=== PATIENT | male | born 1980 | race Caucasian/White ===

== ENCOUNTER 2016-07-28 19:50 | Emergency (ER) | payer MEDICARE, MEDICAID ==
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
--- NOTE | 2016-07-28 21:45 | RAD ---
INDICATION: Cough COMPARISON: March 04, 2004 TECHNIQUE: PA and lateral dual-energy views were obtained. FINDINGS: Bones/Soft Tissues: There are no acute bony findings. Cardiomediastinal: The cardiomediastinal silhouette is normal. Lungs: There are no infiltrates. Pleura: There are no pleural effusions. Other: None IMPRESSION: NO ACTIVE DISEASE.
[2016-07-28 22:15] VITALS: BP 130/79
== END 2016-07-28 22:20 | disposition home or self-care (01) ==
LOC: UCEAST 19:50
DX: J06.9 Acute upper respiratory infection, unspecified (principal); Z87.891 Personal history of nicotine dependence
CPT/HCPCS: 71020; 99211; G0463

== ENCOUNTER 2016-10-01 09:10 | Emergency (ER) | payer MEDICARE, MEDICAID ==
[2016-10-01 11:18] VITALS: BP 157/91
--- NOTE | 2016-10-01 11:56 | UC ---
Throat Pain/Nasal Sedrick HPI - HPI Summary HPI Summary: NAM, ear and throat pain, feve and chills, fatigue for the past 3 days. - History of Current Complaint Chief Complaint: UCRespiratory Stated Complaint: THROAT PAIN Time Seen by Provider: 10/01/16 11:33 Hx Obtained From: Patient Onset/Duration: Sudden Onset, Lasting Days Severity: Severe Associated Signs & Symptoms: Positive: Dysphagia, Sinus Discomfort, Nasal Discharge, Fever - Allergies/Home Medications Allergies/Adverse Reactions: Allergies Allergy/AdvReac Type Severity Reaction Status Date / Time Yanivpberry Allergy Severe Rash Verified 10/01/16 11:19 Home Medications: Home Medications NK [No Home Medications Reported] 10/01/16 [History Confirmed 10/01/16] PMH/Surg Hx/FS Hx/Imm Hx Previously Healthy: Yes Endocrine History Of: Denies: Diabetes, Thyroid Disease Cardiovascular History Of: Denies: Cardiac Disorders, Hypertension Respiratory History Of: Denies: COPD, Asthma GI/ History Of: Denies: Ulcer Psychological History Of: Denies: Anxiety, Depression - Surgical History Surgical History: None - Family History Known Family History: Positive: None, Other - Denies FHx of GI problems Family History: no knowledge of family history pt was adopted - Social History Alcohol Use: None Substance Use Type: None Smoking Status (MU): Former Smoker Amount Used/How Often: quit 10/2014 Review of Systems Constitutional: Fever, Chills, Fatigue Skin: Negative Eyes: Negative ENT: Sore Throat, Ear Ache, Nasal Discharge Respiratory: Negative Cardiovascular: Negative Gastrointestinal: Negative Genitourinary: Negative Motor: Negative Neurovascular: Negative Musculoskeletal: Negative Neurological: Headache Psychological: Negative All Other Systems Reviewed And Are Negative: Yes Physical Exam Triage Information Reviewed: Yes Appearance: Ill-Appearing, Pain Distress, Obese Vital Signs: Initial Vital Signs Temp 99.6 F 10/01/16 11:12 Pulse 93 10/01/16 11:12 Resp 17 10/01/16 11:12 BP 157/91 10/01/16 11:12 Pulse Ox 97 10/01/16 11:12 Vital Signs Reviewed: Yes Eye Exam: Normal Eyes: Positive: Conjunctiva Inflamed ENT: Positive: Pharyngeal erythema, Nasal congestion, Nasal drainage, TM bulging , TM dull, TM red - left side Dental Exam: Normal Neck exam: Normal Neck: Positive: Supple, Nontender, No Lymphadenopathy Respiratory Exam: Normal Respiratory: Positive: Chest non-tender, Lungs clear, Normal breath sounds Cardiovascular Exam: Normal Cardiovascular: Positive: RRR, No Murmur, Pulses Normal Abdominal Exam: Normal Abdomen Description: Positive: Nontender, No Organomegaly, Soft Bowel Sounds: Positive: Present Musculoskeletal Exam: Normal Neurological Exam: Normal Psychological Exam: Normal Skin Exam: Normal Throat Pain/Nasal Course/Dx - Course Course Of Treatment: hx obtained, exam performed, meds reviewed, treated for sinsuitis and otitis media with augmentin - Differential Dx/Diagnosis Differential Diagnosis/HQI/PQRI: Influenza, Laryngitis, Otitis Media, Pharyngitis, Sinusitis, URI Provider Diagnoses: sinusitits. otitis media, left Discharge - Discharge Plan Condition: Stable Disposition: HOME Patient Education Materials: Otitis Media (ED) Forms: *Work Release Additional Instructions: 1. take the medication as prescribed 2. Increase your fluid intake 3. advil or tylenol for pain and fever 4. get plenty of rest. 5. follow up with any worsening symptoms
== END 2016-10-01 12:00 | disposition home or self-care (01) ==
LOC: UCEAST 09:10
DX: J32.9 Chronic sinusitis, unspecified (principal); H66.92 Otitis media, unspecified, left ear; Z87.891 Personal history of nicotine dependence
CPT/HCPCS: 99212; G0463

== ENCOUNTER 2016-10-31 15:41 | Emergency (ER) | payer MEDICARE, MEDICAID ==
[2016-10-31 17:06] VITALS: BP 121/94
[2016-10-31] MEDS ORDERED: Ondansetron ODT TAB* 4 MG PO ONE (19:15)
--- NOTE | 2016-10-31 19:16 | UC ---
Abdominal Pain Male HPI - HPI Summary HPI Summary: 36 male presents with complaints of diffuse middle abdominal pain that began today while at work. Patient states pain at this time was sharp and about an 8/ 10. Patient also experienced some nausea, dry heaving and loose stool at this time that since resolved. Patient's pain also had decreased and was about a 2/ 10 and is currently 5/10. Denies current nausea. Patient states he only came here because his boss advised that he did and said he should get a work note. Patient states he has had this type of pain in the past when he gets stomach bugs and this appears to be similar. He denies chest pain, blood in stool, difficulty breathing, urinary or genitalia symptoms, blood in urine, fever/ chills and radiation of pain. Denies known PMHx. Has not taken any medication. LBM was today. Ate [employer], where he works, for breakfast and burritos last night for dinner. - History of Current Complaint Chief Complaint: UCAbdominalPain Stated Complaint: ABD PAIN Time Seen by Provider: 10/31/16 17:49 Hx Obtained From: Patient Onset/Duration: Sudden Onset, Still Present, Resolved Timing: Constant Severity Initially: Moderate Severity Currently: Mild Pain Intensity: 5 Pain Scale Used: 0-10 Numeric Location: Diffuse - mid abdomen, not localized on right or left Radiates: No Character: Aching, Dull, Sharp - at times Aggravating Factor(s):: Nothing Alleviating Factor(s): Spontaneous Resolution Associated Signs And Symptoms: Positive: Nausea, Diarrhea. Negative: Diaphoresis, Fever, Cough, Chest Pain, Constipation, Blood in Stool, Urinary Symptoms, Decreased Appetite, Vomiting, Penile Discharge Similar Episode/Dx As:: past viral stomach bugs - Allergies/Home Medications Allergies/Adverse Reactions: Allergies Allergy/AdvReac Type Severity Reaction Status Date / Time Raspberry Allergy Severe Rash Verified 10/31/16 17:01 Home Medications: Home Medications NK [No Home Medications Reported] 10/31/16 [History Confirmed 10/31/16] PMH/Surg Hx/FS Hx/Imm Hx - Additional Past Medical History Additional PMH: No known PMHX. denies DM, HTN, asthma - Surgical History Surgical History: None - Family History Known Family History: Positive: None, Other - Denies FHx of GI problems Family History: no knowledge of family history pt was adopted - Social History Alcohol Use: None Alcohol Amount: recovering alcoholic Substance Use Type: None Smoking Status (MU): Former Smoker Amount Used/How Often: quit 10/2014 - Immunization History Vaccination Up to Date: Yes Review of Systems Constitutional: Negative Skin: Negative Respiratory: Negative Cardiovascular: Negative Gastrointestinal: Abdominal Pain, Diarrhea Genitourinary: Negative Motor: Negative Musculoskeletal: Negative Neurological: Negative All Other Systems Reviewed And Are Negative: Yes Physical Exam Triage Information Reviewed: Yes Appearance: Well-Appearing, No Pain Distress, Well-Nourished, Obese Vital Signs: Initial Vital Signs Temp 98.4 F 10/31/16 17:01 Pulse 82 10/31/16 17:01 Resp 16 10/31/16 17:01 BP 121/94 10/31/16 17: Pulse Ox 99 10/31/16 17:01 Vital Signs Reviewed: Yes Eyes: Positive: Conjunctiva Clear ENT: Positive: Normal ENT inspection, Hearing grossly normal, Pharynx normal Dental: Negative: Cervical Lymphadenopathy Neck: Positive: Supple, Nontender, No Lymphadenopathy Respiratory: Positive: Chest non-tender, Lungs clear, Normal breath sounds, No respiratory distress, No accessory muscle use. Negative: Respiratory distress, Crackles, Rhonchi, Stridor, Wheezing Cardiovascular: Positive: RRR, No Murmur, Pulses Normal, Brisk Capillary Refill Abdomen Description: Positive: No Organomegaly, Soft, Bruit, Other: - negative rovsings, psoas and rebound. negative obvious deformity. minimal tenderness diffusely in mid abdomen/umbilical area.. Negative: CVA Tenderness (R), CVA Tenderness (L), Distended, Guarding, McBurney's Point Tenderness, Peritoneal Signs Bowel Sounds: Positive: Present Musculoskeletal: Positive: Strength Intact, ROM Intact Neurological: Positive: Alert Skin Exam: Normal Abd Pain Male Course/Dx - Course Course Of Treatment: patient appears to be suffering from a gastroenteritis however due to complaint of symptoms that were worse prior to arrival and PE findings was encouraged to have a further evaluation and work up at ER. Patient decided at this time he was not going to go however if it worsened he would. Denied any urinary symptoms and therefore no UA was ordered. Also due to PE findings.Given zofran to help with nausea while in office. encouraged to try pepto bismal and ibuprofen at home. aware of worsening signs and symptoms. follow up pcp. - Differential Dx/Clinical Impression Differential Diagnosis/HQI/PQRI: Appendicitis, Constipation, Diverticulitis, Prostatitis, Other Provider Diagnoses: abdominal pain, gastroenteritis Discharge - Discharge Plan Condition: Stable Disposition: AGAINST MEDICAL ADVICE Patient Education Materials: Gastroenteritis (ED) Forms: *Work Release Referrals: No Primary Care Phys,NOPCP [Primary Care Provider] - [facility] [Outside] Additional Instructions: If any of your symptoms worsen please go straight to the ER immediately, as they can be life threatening. Try taking some pepto-bismol when you get home and ibuprofen to see if symptoms improve. Follow up with PCP.
== END 2016-10-31 19:40 | disposition left against medical advice (07) ==
LOC: UCEAST 15:41
DX: R10.9 Unspecified abdominal pain (principal); K52.9 Noninfective gastroenteritis and colitis, unspecified; Z87.891 Personal history of nicotine dependence
CPT/HCPCS: 99212; A9270-GY; G0463

== ENCOUNTER 2016-11-13 17:21 | Emergency (ER) | payer MEDICARE, MEDICAID ==
[2016-11-13 18:24] VITALS: BP 140/69
--- NOTE | 2016-11-13 18:45 | UC ---
Ear Complaint HPI - HPI Summary HPI Summary: 36 yo male developed the onset of right ear pain and tinnitis after a spell ov vomiting this AM Now only mild pain and no tinnitis no further n/v - History of Current Complaint Chief Complaint: UCEar Stated Complaint: EAR ACHE Time Seen by Provider: 11/13/16 18:39 Hx Obtained From: Patient Onset/Duration: Sudden Onset, Lasting Hours Severity Initially: Moderate Severity Currently: Mild Pain Intensity: 2 Pain Scale Used: 0-10 Numeric - Allergies/Home Medications Allergies/Adverse Reactions: Allergies Allergy/AdvReac Type Severity Reaction Status Date / Time Raspberry Allergy Severe Rash Verified 11/13/16 18:24 PMH/Surg Hx/FS Hx/Imm Hx Previously Healthy: Yes - Surgical History Surgical History: None - Family History Known Family History: Positive: None, Other - Denies FHx of GI problems Family History: no knowledge of family history pt was adopted - Social History Alcohol Use: None Alcohol Amount: recovering alcoholic Substance Use Type: None Smoking Status (MU): Former Smoker Amount Used/How Often: quit 10/2014 - Immunization History Vaccination Up to Date: Yes Review of Systems Constitutional: Negative Skin: Negative Eyes: Negative ENT: Ear Ache Respiratory: Negative Cardiovascular: Negative Gastrointestinal: Negative, Vomiting - x1 Genitourinary: Negative Motor: Negative Neurovascular: Negative Musculoskeletal: Negative Neurological: Negative Psychological: Negative All Other Systems Reviewed And Are Negative: Yes Physical Exam Triage Information Reviewed: Yes Appearance: Well-Appearing, No Pain Distress, Well-Nourished Vital Signs: Initial Vital Signs Temp 97.5 F 11/13/16 18:21 Pulse 79 11/13/16 18:21 Resp 18 11/13/16 18:21 BP 140/69 11/13/16 18:21 Pulse Ox 98 11/13/16 18:21 Eyes: Positive: Conjunctiva Clear ENT: Positive: TMs normal - Left, TM bulging - right Neck: Positive: Supple, Nontender Respiratory: Positive: Lungs clear, Normal breath sounds, No respiratory distress, No accessory muscle use Cardiovascular: Positive: RRR, No Murmur Musculoskeletal: Positive: ROM Intact, No Edema Neurological: Positive: Alert Psychological Exam: Normal Skin Exam: Normal Ear Complaint Course/Dx - Differential Dx/Diagnosis Provider Diagnoses: right serous otitis media Discharge - Discharge Plan Condition: Stable Disposition: HOME Patient Education Materials: Serous Otitis Media (ED) Forms: *Work Release Referrals: [facility] [Outside]
== END 2016-11-13 18:50 | disposition home or self-care (01) ==
LOC: UCEAST 17:21
DX: H65.91 Unspecified nonsuppurative otitis media, right ear (principal); Z87.891 Personal history of nicotine dependence
CPT/HCPCS: 99211; G0463

== ENCOUNTER 2016-11-22 17:23 | Emergency (ER) | payer MEDICARE, MEDICAID ==
[2016-11-22 18:05] VITALS: BP 131/79
--- NOTE | 2016-11-22 20:34 | UC ---
Ivan Wang Aidan, scribed for Claudette Cullen MD on 11/22/16 at 1929 . General HPI - HPI Summary HPI Summary: 36 y/o male presents to the Urgent Care with a complaint of an acute, moderate episode of nausea and vomiting that occurred this morning. He also reports having an upper left jaw infection with intermittent episodes of pain. Symptoms began 3 days ago. During the onset of his pain, he begins to feel nauseous. Yesterday, he had an episode of diffuse body aches. Pt is allergic to raspberries. - History of Current Complaint Chief Complaint: UCGI Stated Complaint: VOMITING Time Seen by Provider: 11/22/16 19:08 Hx Obtained From: Patient Onset/Duration: Sudden Onset, Lasting Days, Still Present Timing: Intermittent Episodes Lasting: Onset Severity: Moderate Current Severity: Moderate Pain Intensity: 8 Pain Location at: upper left jaw Pain Radiates to: pain does not radiate Character: sharp Aggravating: none reported Alleviating: none reported Associated Signs & Symptoms: Positive: Nausea, Vomiting, Other - upper left jaw infection with intermittent episodes of pain - Allergy/Home Medications Allergies/Adverse Reactions: Allergies Allergy/AdvReac Type Severity Reaction Status Date / Time Raspberry Allergy Severe Rash Verified 11/13/16 18:24 PMH/Surg Hx/FS Hx/Imm Hx Previously Healthy: No - former substance abuse Psychological History: Schizophrenia - Surgical History Surgical History: None - Family History Family History: no knowledge of family history pt was adopted - Social History Occupation: Employed Full-time Lives: With Family Alcohol Use: None Alcohol Amount: recovering alcoholic Substance Use Type: None Substance Use Comment - Amount & Last Used: Previous heroin, cocaine, and crack abuse. Pt is 5 years sober from alcohol Smoking Status (MU): Former Smoker Amount Used/How Often: quit 10/2014 - Immunization History Vaccination Up to Date: Yes Review of Systems Constitutional: Negative Skin: Other - facial swelling left jaw and left cheek Eyes: Negative ENT: Dental Pain, Other - left jaw pain Respiratory: Negative Cardiovascular: Negative Gastrointestinal: Vomiting, Nausea Genitourinary: Negative Motor: Negative Neurovascular: Negative Musculoskeletal: Negative Neurological: Negative Psychological: Negative All Other Systems Reviewed And Are Negative: Yes Physical Exam Triage Information Reviewed: Yes Appearance: Well-Appearing, Well-Nourished, Pain Distress Vital Signs: Initial Vital Signs Temp 99.1 F 11/22/16 18:01 Pulse 76 11/22/16 18:01 Resp 18 11/22/16 18:01 BP 131/79 11/22/16 18:01 Pulse Ox 98 11/22/16 18:01 Vital Signs Reviewed: Yes Eyes: Positive: Conjunctiva Clear ENT: Positive: Normal ENT inspection. Negative: Muffled/hoarse voice Dental: Positive: Gross Decay/Caries @ - total decay and carries, Dental Fracture @ - tooth #12 is fractured Neck: Positive: Supple, Nontender, No Lymphadenopathy Respiratory: Positive: Lungs clear, Normal breath sounds, No respiratory distress, No accessory muscle use Cardiovascular: Positive: RRR, No Murmur, Pulses Normal, Brisk Capillary Refill Musculoskeletal: Positive: Strength Intact, ROM Intact Neurological Exam: Normal Psychological Exam: Normal Skin Exam: Normal Course/Dx - Course Course Of Treatment: 36 y/o male presents with episodes of nausea and vomiting likely secondary to his jaw and dental infection with pain. On examination tooth #12 was fractured and pt has diffuse caries and fractures. ISTOP shows narcotics in 2016. Pt's blood pressure was 131/79, which is slightly hypertensive. Recommended follow up with primary care within 4 weeks for blood pressure monitoring and evaluation. Pt will be treated with amoxicillin, zofran and narcotic for severe pain. - Differential Dx - Multi-Symptom Differential Diagnoses: Metabolic Abnormality, Other - dental abscess Provider Diagnoses: Dental abscess; vomiting; Elevated blood pressure without diagnosis of HTN, Discharge - Discharge Plan Condition: Stable Disposition: HOME Prescriptions: Amoxicillin CAP* [Amoxicillin 500 MG CAP*] 500 mg PO TID #30 cap HYDROcodone/ACETAMIN 5-325 MG* [[place] 5-325 TAB*] 1 tab PO Q4H PRN #18 tab MDD 6 PRN Reason: Pain Ondansetron ODT TAB* [Zofran 4 MG Odt TAB*] 4 mg PO Q6H PRN #15 tab.odt PRN Reason: Nausea Patient Education Materials: Dental Abscess (ED) Forms: *Work Release Referrals: [facility] [place] [facility] [Outside] Additional Instructions: Try to follow up with with a dentist MARIE. Return to urgent care if you have any new or worsening symptoms. Your blood pressure today was 131/79, which is slightly hypertensive. Follow up with a primary care provider within 4 weeks for blood pressure monitoring and evaluation is recommended. The documentation as recorded by the Ivan morales Aidan accurately reflects the service I personally performed and the decisions made by , Claudette Cullen MD.
== END 2016-11-22 19:35 | disposition home or self-care (01) ==
LOC: UCEAST 17:23
DX: K04.7 Periapical abscess without sinus (principal); R11.2 Nausea with vomiting, unspecified; R03.0 Elevated blood-pressure reading, without diagnosis of hypertension; F20.9 Schizophrenia, unspecified; Z87.891 Personal history of nicotine dependence
CPT/HCPCS: 99212; G0463

== ENCOUNTER 2016-12-10 17:41 | Emergency (ER) | payer MEDICARE, MEDICAID ==
[2016-12-10 19:20] VITALS: BP 145/84
--- NOTE | 2016-12-10 19:33 | UC ---
Abdominal Pain Male HPI - HPI Summary HPI Summary: works at [employer] in [facility]---he called off work today because he had diarrhea last night and it continued in to the morning---he is eating well now and diarrhea has resolved---he needs a note to return to work no fevers or ill exposures - History of Current Complaint Chief Complaint: UCGI Stated Complaint: DIARRHEA Time Seen by Provider: 12/10/16 19:26 Hx Obtained From: Patient Onset/Duration: Sudden Onset, Lasting Days - 1, Resolved Severity Initially: Mild Severity Currently: None Pain Intensity: 0 Pain Scale Used: 0-10 Numeric Radiates: No Character: Cramping Alleviating Factor(s): Nothing Associated Signs And Symptoms: Positive: Negative - Allergies/Home Medications Allergies/Adverse Reactions: Allergies Allergy/AdvReac Type Severity Reaction Status Date / Time Raspberry Allergy Severe Rash Verified 12/10/16 19:20 Home Medications: Home Medications Acetaminophen [Mapap] 1,000 mg PO PRN 12/10/16 [History] Bismuth Subsalicylate [Pepto-Bismol Max Strength] PRN 12/10/16 [History] PMH/Surg Hx/FS Hx/Imm Hx Previously Healthy: No - Surgical History Surgical History: None - Family History Known Family History: Positive: None, Other - Denies FHx of GI problems Family History: no knowledge of family history pt was adopted - Social History Occupation: Employed Full-time Lives: With Family Alcohol Use: None Alcohol Amount: recovering alcoholic Substance Use Type: None Substance Use Comment - Amount & Last Used: QUIT 10 YEARS AGO Smoking Status (MU): Former Smoker Amount Used/How Often: quit 10/2014 - Immunization History Vaccination Up to Date: Yes Review of Systems Constitutional: Negative Skin: Negative Eyes: Negative ENT: Negative Respiratory: Negative Cardiovascular: Negative Gastrointestinal: Abdominal Pain, Vomiting, Diarrhea Genitourinary: Negative Motor: Negative Neurovascular: Negative Musculoskeletal: Negative Neurological: Negative Psychological: Negative All Other Systems Reviewed And Are Negative: Yes Physical Exam Triage Information Reviewed: Yes Appearance: Well-Appearing, No Pain Distress, Well-Nourished Vital Signs: Initial Vital Signs Temp 99.1 F 12/10/16 19:16 Pulse 74 12/10/16 19:16 Resp 16 12/10/16 19:16 BP 145/84 12/10/16 19:16 Pulse Ox 97 07/10/17 19:16 Vital Signs Reviewed: Yes Eye Exam: Normal Eyes: Positive: Conjunctiva Clear ENT Exam: Normal ENT: Positive: Normal ENT inspection, Hearing grossly normal, Pharynx normal. Negative: Nasal congestion, Nasal drainage, Trismus, Muffled/hoarse voice Dental Exam: Normal Neck exam: Normal Neck: Positive: Supple, Nontender Respiratory Exam: Normal Respiratory: Positive: Chest non-tender, Lungs clear, Normal breath sounds, No respiratory distress, No accessory muscle use Cardiovascular Exam: Normal Cardiovascular: Positive: RRR, No Murmur, Pulses Normal, Brisk Capillary Refill Abdominal Exam: Normal Abdomen Description: Positive: Nontender, No Organomegaly, Soft Bowel Sounds: Positive: Present Musculoskeletal Exam: Normal Musculoskeletal: Positive: Strength Intact, ROM Intact, No Edema Neurological Exam: Normal Neurological: Positive: Alert, Muscle Tone Normal Psychological Exam: Normal Skin Exam: Normal Abd Pain Male Course/Dx - Course Course Of Treatment: normal diet as tolerated---follow blood pressure with pcp in 1-2 weeks - Differential Dx/Clinical Impression Differential Diagnosis/HQI/PQRI: Diverticulitis, Gall Bladder Disease, Other - acute diarrhea Provider Diagnoses: Acute diarrhea-resolved, hypertension without hx of high blood pressure Discharge - Discharge Plan Condition: Stable Disposition: HOME Patient Education Materials: Acute Nausea and Vomiting (ED), Acute Diarrhea (ED ), Hypertension (ED), Nutrition Tips for Relief of Diarrhea (ED) Forms: *Work Release Referrals: [facility] [place] [facility] [Outside] - 2 Weeks
== END 2016-12-10 20:10 | disposition home or self-care (01) ==
LOC: UCEAST 17:41
DX: R19.7 Diarrhea, unspecified (principal); I10 Essential (primary) hypertension; Z87.891 Personal history of nicotine dependence
CPT/HCPCS: 99211; G0463

== ENCOUNTER 2017-02-20 19:52 | Emergency (ER) | payer MEDICARE, MEDICAID ==
[2017-02-20 20:07] VITALS: BP 152/71
--- NOTE | 2017-02-20 20:45 | UC ---
Robyn Wang Thomas, scribed for Elin Redman MD on 02/20/17 at 2029 . Respiratory Complaint HPI - HPI Summary HPI Summary: The pt is a 37 y/o M presenting to E c/o a cough that began three days ago. The pain is aggravated and alleviated by nothing. The patient has treated the pain with Nyquil and Dayquil FELT CUTTER, to no relief). Pt additionally c/o sore throat , rhinorrhea, vomiting, fever (Temp 100 yesterday), sneezing, myalgia, right ear pain (onset yesterday). Pt states has had posttussive emesis. + po hamburger today His two children were recently sick with colds. 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 + He does not have a PCP. Patients medication reviewed this visit. - History of Current Complaint Chief Complaint: UCRespiratory Stated Complaint: COUGH,ST,EAR PAIN Time Seen by Provider: 02/20/17 20:11 Hx Obtained From: Patient Onset/Duration: Lasting Days - onset three days ago, Still Present Timing: Constant Severity Initially: Moderate Severity Currently: Moderate Character: Cough: Nonproductive Aggravating Factors: Nothing Alleviating Factors: Nothing Associated Signs And Symptoms: Positive: Fever - Allergies/Home Medications Allergies/Adverse Reactions: Allergies Allergy/AdvReac Type Severity Reaction Status Date / Time Raspberry Allergy Severe Rash Verified 02/20/17 20:07 Home Medications: Home Medications [id number]-[id number]-[id number] [Nyquil Severe Cold/Flu 5-6.25-10-325 mg/15Ml] 1 liq PO PRN 02/20/17 [History] PMH/Surg Hx/FS Hx/Imm Hx Previously Healthy: No Endocrine History: Other Other Endocrine History: NEG: DM Cardiovascular History: Hypertension Respiratory History: Other Other Respiratory History: NEG: asthma - Surgical History Surgical History: None - Family History Known Family History: Positive: Other - Denies FHx of GI problems Family History: no knowledge of family history pt was adopted - Social History Occupation: Employed Full-time Lives: With Family Alcohol Use: None Alcohol Amount: recovering alcoholic Substance Use Type: None Substance Use Comment - Amount & Last Used: RECOVERING DRUG ADDICT Smoking Status (MU): Former Smoker Amount Used/How Often: quit 10/2014 - Immunization History Vaccination Up to Date: Yes Review of Systems Constitutional: Fever - temp 100 yesterday ENT: Sore Throat, Ear Ache - onset yesterday, Nasal Discharge, Sinus Congestion , Other - Sneezing Respiratory: Cough Gastrointestinal: Vomiting Genitourinary: Negative Motor: Negative Neurovascular: Negative Musculoskeletal: Negative, Myalgia Neurological: Negative Psychological: Negative All Other Systems Reviewed And Are Negative: Yes Physical Exam Triage Information Reviewed: Yes Appearance: Well-Appearing, No Pain Distress - congested Vital Signs: Initial Vital Signs Temp 98.4 F 02/20/17 20:03 Pulse 82 02/20/17 20:03 Resp 18 02/20/17 20:03 BP 152/71 02/20/17 20:03 Pulse Ox 99 02/20/17 20:03 Vital Signs Reviewed: Yes Eye Exam: Normal ENT: Positive: Nasal congestion, TMs normal - right TM ++ buldging, erythema, fluid, Other: - turbinates inflammed + PND uvula midline No exudate Neck exam: Normal Neck: Positive: Supple, Nontender Respiratory Exam: Normal Respiratory: Positive: Chest non-tender, Lungs clear, Other: - no cough during exam Cardiovascular Exam: Normal Cardiovascular: Positive: RRR, No Murmur Abdominal Exam: Normal Abdomen Description: Positive: Nontender, No Organomegaly, Soft Bowel Sounds: Positive: Present Musculoskeletal Exam: Normal Neurological Exam: Normal Neurological: Positive: Alert Psychological Exam: Normal Psychological: Positive: Normal Response To Family Skin Exam: Normal Diagnostic Evaluation - Laboratory O2 Sat by Pulse Oximetry: 99 Respiratory Course/Dx - Course Course Of Treatment: The pt is a 37 y/o M presenting to E c/o a cough that began three days ago. The pain is aggravated and alleviated by nothing. The patient has treated the pain with Nyquil and Dayquil FELT CUTTER, to no relief). Pt additionally c/o sore throat, rhinorrhea, vomiting, fever (Temp 100 yesterday), sneezing, myalgia, ear pain (onset yesterday). Pt with right OM on exam. Will check strep. anticipate abx, flonase. pcp referral. Pt comfortable and in agreement with plan - Differential Dx/Diagnosis Provider Diagnoses: Right Otitis Media Discharge - Discharge Plan Condition: Stable Disposition: HOME Prescriptions: Amoxicillin PO (*) [Amoxicillin 875 MG (*)] 875 mg PO BID #20 tab Fluticasone NASAL * [Flonase *] 2 spray BOTH NARES DAILY #1 spray Forms: *Work Release Referrals: [employer] [facility]ERR[facility] [Outside] - 3 Days Additional Instructions: - Okay to alternate ibuprofen (Advil, Motrin) and Tylenol every 3 hours for pain. Take with food. Do NOT take for more than 4-5 days - Okay to gargle and spit every 4 hours as needed for throat pain - Stay well hydrated - avoid excess caffeine -Take antibiotics and nasal spray as prescribed until gone - After you have been on antibiotics for 2 days - change your toothbrush and your pillowcase. These infections are spread by secrtions - do NOT share eating or drinking utensils - clean items you share with other people such as iphone, computer mouse, TV remote, etc - You have been given the a referral to the physician referral center - they will assist you to find a physician The documentation as recorded by the Robyn morales Thomas accurately reflects the service I personally performed and the decisions made by me, Elin Redman MD.
[2017-02-20] MEDS ORDERED: Amoxicillin PO (*) 500 MG CAP PO ONE (20:46)
== END 2017-02-20 21:04 | disposition home or self-care (01) ==
LOC: UCEAST 19:52
DX: H66.91 Otitis media, unspecified, right ear (principal); R50.9 Fever, unspecified; J02.9 Acute pharyngitis, unspecified; R05 Cough; I10 Essential (primary) hypertension; Z87.891 Personal history of nicotine dependence
CPT/HCPCS: 87651; 99212; A9270-GY; G0463

== ENCOUNTER 2017-03-05 11:02 | Emergency (ER) | payer MEDICARE, MEDICAID ==
[2017-03-05 11:50] VITALS: BP 122/71
--- NOTE | 2017-03-05 12:15 | UC ---
Eye Complaint HPI - HPI Summary HPI Summary: ONSET OF LEFT EYE REDNESS, IRRITATION AND DRAINAGE YESTERDAY. NO VISUAL DISTURBANCE, FEVER, PHOTOPHOBIA OR NAM. HAS HAD URI SX THIS PAST WEEK AND AIDAN HAS PINK EYE. - History of Current Complaint Chief Complaint: UCEye Stated Complaint: EYE ISSUE Time Seen by Provider: 03/05/17 12:02 Hx Obtained From: Patient Onset/Duration: Gradual Onset, Lasting Hours, Still Present Timing: Constant Severity Initially: Moderate Severity Currently: Moderate Pain Intensity: 3 Pain Scale Used: 0-10 Numeric Location of Injury: Conjunctiva Aggravating Factor(s): Blinking Alleviating Factor(s): Nothing Associated Signs And Symptoms: Positive: Drainage (Clear). Negative: Photophobia, Drainage (Purulent), Vision Impairment Bilateral, Vision Impairment Right, Vision Impairment Left - Allergies/Home Medications Allergies/Adverse Reactions: Allergies Allergy/AdvReac Type Severity Reaction Status Date / Time Raspberry Allergy Severe Rash Verified 03/05/17 11:46 PMH/Surg Hx/FS Hx/Imm Hx Previously Healthy: Yes - Surgical History Surgical History: None - Family History Known Family History: Positive: Hypertension, Diabetes Family History: pt was adopted but knows there is heart disease and dm in his biological family - Social History Alcohol Use: None Alcohol Amount: recovering alcoholic Substance Use Type: None Substance Use Comment - Amount & Last Used: RECOVERING DRUG ADDICT Smoking Status (MU): Former Smoker Amount Used/How Often: quit 10/2014 - Immunization History Vaccination Up to Date: Yes Review of Systems Constitutional: Negative Eyes: Drainage, Eye Redness Respiratory: Negative Cardiovascular: Negative Gastrointestinal: Negative All Other Systems Reviewed And Are Negative: Yes Physical Exam Triage Information Reviewed: Yes Appearance: Well-Appearing, No Pain Distress, Well-Nourished Vital Signs: Initial Vital Signs Temp 98.9 F 03/05/17 11:47 Pulse 72 03/05/17 11:47 Resp 16 03/05/17 11:47 BP 122/71 03/05/17 11:47 Pulse Ox 98 03/05/17 11:47 Vital Signs Reviewed: Yes Eyes: Positive: Conjunctiva Inflamed - LEFT, Discharge - LEFT CLEAR ENT: Positive: Hearing grossly normal Neck: Positive: Supple Respiratory Exam: Normal Cardiovascular Exam: Normal Abdomen Description: Positive: Soft Musculoskeletal: Positive: No Edema Neurological: Positive: Alert Psychological: Positive: Age Appropriate Behavior Skin: Negative: rashes Eye Complaint Course/Dx - Differential Dx/Diagnosis Provider Diagnoses: LEFT EYE CONJUNCTIVITIS Discharge - Discharge Plan Condition: Stable Disposition: HOME Prescriptions: Ciprofloxacin 0.3% OPTH.EULALIO* [Cipro 0.3% Opth*] 1 drop LEFT EYE Q4H #1 btl Patient Education Materials: Conjunctivitis (ED) Forms: *Work Release Referrals: No Primary Care Phys,NOPCP [Primary Care Provider] - Additional Instructions: CALL THE NUMBER BELOW FOR ASSISTANCE IN ESTABLISHING WITH A PCP An additional resource available to assist in finding the appropriate physician for your health care needs is the [facility] ([facility]). You may contact them by calling [phone].
== END 2017-03-05 12:27 | disposition home or self-care (01) ==
LOC: UCEAST 11:02
DX: H10.9 Unspecified conjunctivitis (principal)
CPT/HCPCS: 99212; G0463

== ENCOUNTER 2017-05-16 08:29 | Emergency (ER) | payer MEDICARE, MEDICAID ==
[2017-05-16 08:50] VITALS: BP 136/73
--- NOTE | 2017-05-16 12:03 | UC ---
Jeremy Wang Jason, scribed for [facility] on 05/16/17 at 0930 . HPI Febrile Illness - HPI Summary HPI Summary: In Room: This patient is a 37 year old M presenting to [facility] with a chief complaint of sore throat since 1 day ago. The patient states that experienced vomiting 2 days ago, and began experiencing sore throat, cold, and chills since 1 day ago. Additionally, the patient includes that he received a flu shot 3 days ago. The patient rates the pain 7/10 in severity. Symptoms aggravated by nothing. Symptoms alleviated by nothing. Patient reports that he has tonsils. MD note: VSS, temperature 99.2, BP 136/73, pulse ox: 99. Opioid dependence in recovery. Visit history: URI visit 02/20/17. The patient is on no medications, no antibiotic allergies. Nurses note: Pt states sore throat, cold chills, cough, vomiting and body aches that began 05/15/17. Pt states fever of 101 05/15/17. - History of Current Complaint Chief Complaint: UCGeneralIllness Time Seen by Provider: 05/16/17 09:25 Hx Obtained From: Patient Onset/Duration: Started Days Ago - 1 day ago, Still Present Timing: Constant Pain Intensity: 7 Pain Scale Used: 0-10 Numeric Associated Signs and Symptoms: Other: - throat, cold, vomiting and chills. - Allergy/Home Medications Allergies/Adverse Reactions: Allergies Allergy/AdvReac Type Severity Reaction Status Date / Time Raspberry Allergy Severe Rash Verified 05/16/17 08:49 Home Medications: Home Medications NK [No Home Medications Reported] 05/16/17 [History Confirmed 05/16/17] PMH/Surg Hx/FS Hx/Imm Hx Previously Healthy: Yes Endocrine History: Other Other Endocrine History: negative DM Cancer History: Other Other Cancer History: negative cancer - Surgical History Surgical History: None - Family History Known Family History: Positive: Hypertension, Diabetes, Other - Denies FHx of GI problems Family History: pt was adopted but knows there is heart disease and dm in his biological family - Social History Occupation: Employed Full-time Alcohol Use: None Alcohol Amount: recovering alcoholic Substance Use Type: None Substance Use Comment - Amount & Last Used: RECOVERING DRUG ADDICT Smoking Status (MU): Former Smoker Amount Used/How Often: quit 10/2014 - Immunization History Most Recent Influenza Vaccination: 05/13/17 Vaccination Up to Date: Yes Review of Systems All Other Systems Reviewed And Are Negative: Yes - Comments Additional Review of Systems Comments: A 12 point review of systems was completed and significantly positive for: sore throat, cold, and chills. Additionally, the patient reported vomiting 2 days ago.The remainder of the review was negative except as stated above in the HPI. Physical Exam Triage Information Reviewed: Yes Vital Signs: Initial Vital Signs Temp 99.2 F 05/16/17 08:46 Pulse 85 05/16/17 08:46 Resp 18 05/16/17 08:46 BP 136/73 05/16/17 08:46 Pulse Ox 99 05/16/17 08:46 - Additional Comments General: The patient is well-nourished in no acute distress and in no acute pain. Skin: The skin is warm and dry and skin color reflects adequate perfusion. HEENT: The head is normocephalic and atraumatic. The pupils are equal and reactive. The conjunctivae are clear and without drainage. Nares are patent and without drainage. Mouth reveals moist mucous membranes. The external ears are intact. The ear canals are patent and without drainage. There are no carotid bruits. There is no neck vein distension. NECK IS SUPPLE. SINUSES NON TENDER. NEGATIVE CERVICAL ADENOPATHY. TM NORMAL. MILD BILATERAL TONSILAR SWELLING WITH ERYTHEMA, WITHOUT EXUDATE. Respiratory: Chest is non-tender. Lungs are clear to auscultation and breath sounds are symmetrical and equal. Cardiovascular: Heart is regular rate and rhythm. There is no murmur or rub auscultated. There is no peripheral edema and pulses are symmetrical and equal. Abdomen: The abdomen is soft and non-tender. There are normal bowel sounds heard in all four quadrants and there is no organomegaly palpated. Musculoskeletal: There is no back pain noted. Extremities are non-tender with full range of motion. There is good capillary refill. There is no peripheral edema or calf tenderness elicited. Neurological: Patient is alert and oriented to person, place and time. The patient has symmetrical motor strength in all four extremities. Cranial nerves are grossly intact. Deep tendon reflexes are symmetrical and equal in all four extremities. Psychiatric: The patient has an appropriate affect and does not exhibit any anxiety or depression Course/Dx - Course Course Of Treatment: The patient is a 37 year old M presenting with a sore throat since 1 day ago. His strep test result was negative. Hx is consistent with viral syndrome. Patient was advised to rest and restrict activity until he feels better.Patient had a pre-hypertensive BP reading 136/73; patient referred to PCP for follow-up. Patient is agreeable with this plan. Dx: viral syndrome. - Febrile Illness Differential Diagnoses: Other: - strep throat, URI, viral syndrome - Diagnoses Clinic Provider Diagnoses: Viral Syndrome Discharge - Discharge Plan Condition: Stable Disposition: HOME Patient Education Materials: Viral Syndrome (ED) Forms: *Work Release Referrals: No Primary Care Phys,NOPCP [Primary Care Provider] - Additional Instructions: Your BP reading was pre-hypertensive at (136/73). You are advised to follow up with PCP and re-measure BP within 4 weeks. WE DISCUSSED: 1. You have a virus that has caused your fever, sore throat and vomiting. 2. You need to rest, drink lots of fluids. 3. There was no evidence of strep or a need for an antibiotic at this time. 4. See instructions below: COUGH, CONGESTION of CHEST, SINUSES OR EARS: The most important goal is to liquefy all the phlegm and get it out of your head and chest. Any illness causing cough, congestion, sore throat or sinus discomfort can be helped by doing the following: STAND UNDER SHOWER STREAM TO LOOSEN SECRETIONS. STAY AWAY FROM ANY SMOKE OR IRRITANTS. WHAT ELSE CAN HELP RELIEVE YOUR SYMPTOMS: GENERAL TYPES OF MEDICINE THAT MAY HELP DECONGESTANTS: helps relieve stuffiness and clears sinuses. Pseudoephedrine ( Sudafed or generic) is effective but you need to ask the pharmacist for it because it may be kept behind the counter. ANTIHISTAMINES: are NOT helpful in many colds and flus because they can worsen sore throat, dry eyes and mouth and cause drowsiness. Examples are diphenhydramine, doxylamine and chlorpheniramine. They can help dry you out if you are having profuse, clear drainage from the nose. EXPECTORANTS: helps thin mucous in the nose and chest, making it easier to clear the fluid out. Expectorants are in most combination cough/cold remedies and should be taken with plenty of water. Guaifenesin is the most common expectorant and it comes in pill or liquid form. Mucinex is an extended release form of guaifenesin. COUGH SUPPRESANT: reduces the body's cough reflex. Dextromethorphan is in over the counter products, but sometimes narcotics such as codeine or hydrocodone are used to suppress cough. SPECIFIC MEDICATIONS: The most important goal is to liquefy all the phlegm and get it out of your head and chest: The following medicines (in prescription form or you can buy them without prescription) may help: To help with cough: DEXTROMETHORPHAN (Vicks, Robitussin, Nyquil and other brands) To help break up phlegm: GUAIFENESIN (Mucinex, Robitussin, other brands) To help clear congestion: PSEUDOEPHEDRINE (Sudafed, Dimetapp, other brands) TRY TO CLEAR NOSE: AFRIN NASAL SPRAY: 2-3 SPRAYS PER NOSTRIL, TWICE A DAY FOR TWO DAYS ONLY. USEFUL WAYS TO FEEL BETTER WITHOUT MEDICATIONS: STAND UNDER SHOWER STREAM TO LOOSEN SECRETIONS. USE A VAPORIZOR. STAY AWAY FROM ANY SMOKE OR IRRITANTS. USE SALINE NASAL SPRAY TO KEEP FLOW OF MUCOUS FROM NOSTRILS AND SINUSES. CONSIDER USING NETI POT TO HELP WITH ALLERGIES AND CONGESTION IN THE NOSE. USE THIS THREE TIMES A WEEK. YOU CAN GET THIS AT [employer] IN [place] OR [facility]. DRINK LOTS OF WARM FLUIDS USEFUL HOME REMEDIES: WARM WATER GARGLES, WITH TSP OF SALT PER 8 OUNCES OF WATER, GARGLE FOR A FEW SECONDS AND SPIT OUT; GARGLE AND SPIT OUT; EVERY THREE HOURS. AND/OR: WARM WATER OR TEA, HONEY AND LEMON; 2-3 CUPS A DAY. FOR SORE THROAT: KEEP THROAT MOIST WITH LOZENGES; TEA AND HONEY. USE WARM WATER GARGLES 3-4 TIMES A DAY. FOLLOW UP: RE-CHECK IN 1O DAYS, NEEDED, IF YOU ARE NOT IMPROVING. RETURN HERE OR SEE YOUR PHYSICIAN. RE-CHECK SOONER IF INCREASED PAIN OR TEMPERATURE. The documentation as recorded by the Jeremy morales Jason accurately reflects the service I personally performed and the decisions made by me, Kal Schrader MD.
== END 2017-05-16 10:19 | disposition home or self-care (01) ==
LOC: UCEAST 08:29
DX: B34.9 Viral infection, unspecified (principal); Z87.891 Personal history of nicotine dependence
CPT/HCPCS: 87651; 99211; G0463

== ENCOUNTER 2017-11-30 12:57 | Emergency (ER) | payer MEDICAID, MEDICARE ==
--- NOTE | 2017-11-30 14:23 | RAD ---
Indication: Right scrotal mass. Real-time sonography of the scrotum was performed. The right testis measures 4.4 x 2.2 x 2.7 cm. There is a hypoechoic mass in the lower pole of the right testis measuring up to 1.1 x 1.3 x 1.0 cm. Additional hypoechoic mass in the upper pole of the right testis measures 0.8 x 1.4 x 1.0 cm. The possibility of a testicular neoplasm should BE considered. The epididymis measures 7 x 9 mm. Normal flow is noted in the right testis. No hydrocele is noted. The left testis measures 4.3 x 2.5 x 2.8 cm. No intratesticular masses are noted. The epididymis measures 11 x 9 mm. No hydrocele is noted. IMPRESSION: Hypoechoic solid lesions in the upper and lower pole of the right testis as described above. Interrogation of the right testis demonstrates vascularity within the hypoechoic masses.. The possibility of a right testicular neoplasm should BE considered.
[2017-11-30 15:55] VITALS: BP 128/74
[2017-11-30 16:12] LABS: ABS Basophils 0 10^3/ul (0-0.2); ABS Eosinophils 0.2 10^3/ul (0-0.6); ABS Lymphocytes 1.5 10^3/ul (1.0-4.8); ABS Monocytes 0.6 10^3/ul (0-0.8); ABS Nucleated RBC 0 10^3/ul; Eosinophil % 2.4 % (0-6); Hematocrit 41 % (42-52); Hemoglobin 14.1 g/dl (14.0-18.0); Lymphocyte % 17.8 % (25-47); Mean Corpuscular HGB Conc 35 g/dl (31-36); Mean Corpuscular Hemoglobin 32 pg (27-31); Mean Corpuscular Volume 92 fL (80-94); Mean Platelet Volume 8.3 um3 (7.4-10.4); Nucleated Red Blood Cells % 0.1; Platelet Count 217 10^3/ul (150-450); Red Blood Count 4.44 10^6/ul (4.00-5.40); Red Cell Distribution Width 14 % (10.5-15); White Blood Count 8.3 10^3/ul (3.5-10.8)
[2017-11-30 16:17] LABS: EGFR Non-African American 92.1 (>60)
--- NOTE | 2017-11-30 22:24 | ED ---
Norris Wang Natalie, scribed for Tito Gutierres MD on 11/30/17 at 1333 . GI/ HPI - HPI Summary HPI Summary: The patient is a 37 y/o M presenting to [facility] c/o bump on right testicle that has been present for 4 months, but has recently increased in size and became painful in the last 3 days. The pain is rated 7/10 in severity. He additionally c/o inguinal abd pain. He denies change in appetite and urinary symptoms. - History of Current Complaint Chief Complaint: EDAbdPain Time Seen by Provider: 11/30/17 13:07 Stated Complaint: TESTICULAR PAIN Hx Obtained From: Patient Onset/Duration: Started Days Ago, Still Present Timing: Lasting Days Severity: Mild Current Severity: Moderate Pain Intensity: 7 Additional Locations for Males: Testicles - right Pain Radiates to: Inguinal Associated Signs and Symptoms: Positive: Negative - urinary symptoms, Other: - bump on right testicle. Negative: Change in Appetite Aggravating Factor(s): Nothing Alleviating Factor(s): Nothing - Allergy/Home Medications Allergies/Adverse Reactions: Allergies Allergy/AdvReac Type Severity Reaction Status Date / Time rassberries Allergy Hives Uncoded 11/30/17 13:04 PMH/Surg Hx/FS Hx/Imm Hx Endocrine/Hematology History: Denies: Hx Diabetes, Hx Thyroid Disease Cardiovascular History: Denies: Hx Hypertension Respiratory History: Denies: Hx Asthma, Hx Chronic Obstructive Pulmonary Disease (COPD) GI History: Denies: Hx Ulcer Psychiatric History: Denies: Hx Anxiety, Hx Depression Infectious Disease History: No Infectious Disease History: Reports: Hx Shingles - x2 Denies: Hx Clostridium Difficile, Hx Hepatitis, Hx Human Immunodeficiency Virus (HIV), Hx of Known/Suspected MRSA, History Other Infectious Disease, Traveled Outside the [place] in Last 30 Days - Family History Known Family History: Positive: Hypertension, Diabetes, Other - Denies FHx of GI problems Family History: pt was adopted but knows there is heart disease and dm in his biological family - Social History Alcohol Use: None Alcohol Amount: recovering alcoholic Substance Use Type: Reports: None Substance Use Comment - Amount & Last Used: RECOVERING DRUG ADDICT Smoking Status (MU): Former Smoker Amount Used/How Often: quit 10/2014 Review of Systems Gastrointestinal: Negative - change in appetite Positive: Abdominal Pain Genitourinary: Negative - urinary symptoms, Other - bump on right testicle All Other Systems Reviewed And Are Negative: Yes Physical Exam - Summary Physical Exam Summary: Appearance: The patient is well-nourished in no acute distress and in no acute pain. Skin: The skin is warm and dry and skin color reflects adequate perfusion. HEENT: The head is normocephalic and atraumatic. The pupils are equal and reactive. The conjunctivae are clear and without drainage. Nares are patent and without drainage. Mouth reveals moist mucous membranes and the throat is without erythema and exudate. The external ears are intact. The ear canals are patent and without drainage. The tympanic membranes are intact. Neck: The neck is supple with full range of motion and non-tender. There are no carotid bruits. There is no neck vein distension. Respiratory: Chest is non-tender. Lungs are clear to auscultation and breath sounds are symmetrical and equal. Cardiovascular: Heart is regular rate and rhythm. There is no murmur or rub auscultated. There is no peripheral edema and pulses are symmetrical and equal. Abdomen: The abdomen is soft and non-tender. There are normal bowel sounds heard in all four quadrants and there is no organomegaly palpated. Exam: The patient is mildly indurated. There is tenderness in the epididymis. Musculoskeletal: There is no back tenderness noted. Extremities are non-tender with full range of motion. There is good capillary refill. There is no peripheral edema or calf tenderness elicited. Neurological: Patient is alert and oriented to person, place and time. The patient has symmetrical motor strength in all four extremities. Cranial nerves are grossly intact. Deep tendon reflexes are symmetrical and equal in all four extremities. Psychiatric: The patient has an appropriate affect and does not exhibit any anxiety or depression. Triage Information Reviewed: Yes Vital Signs On Initial Exam: Initial Vitals Temp Pulse Resp BP Pulse Ox 98.3 F 70 18 132/84 96 11/30/17 13:01 11/30/17 13:01 11/30/17 13:11/30/17 13:11/30/17 13:01 Vital Signs Reviewed: Yes Diagnostics - Vital Signs Vital Signs Temp Pulse Resp BP Pulse Ox 11/30/17 13:01 98.3 F 70 18 132/84 96 - Laboratory Lab Results: Lab Results 06/30/18 06/30/18 Range/Units 15:33 15:35 WBC 8.3 (3.5-10.8) 10^3/ul RBC 4.44 (4.00-5.40) 10^6/ul Hgb 14.1 (14.0-18.0) g/dl Hct 41 L (42-52) % MCV 92 (80-94) fL MCH 32 H (27-31) pg MCHC 35 (31-36) g/dl RDW 14 (10.5-15) % Plt Count 217 (150-450) 10^3/ul MPV 8.3 (7.4-10.4) um3 Neut % (Auto) 72.2 (38-83) % Lymph % (Auto) 17.8 L (25-47) % [place] % (Auto) 7.0 (0-7) % Eos % (Auto) 2.4 (0-6) % Baso % (Auto) 0.6 (0-2) % Absolute Neuts (auto) 6.0 (1.5-7.7) 10^3/ul Absolute Lymphs (auto) 1.5 (1.0-4.8) 10^3/ul Absolute Monos (auto) 0.6 (0-0.8) 10^3/ul Absolute Eos (auto) 0.2 (0-0.6) 10^3/ul Absolute Basos (auto) 0 (0-0.2) 10^3/ul Absolute Nucleated RBC 0 10^3/ul Nucleated RBC % 0.1 Sodium 137 (135-145) mmol/L Potassium 4.0 (3.5-5.0) mmol/L Chloride 107 (101-111) mmol/L Carbon Dioxide 23 (22-32) mmol/L Anion Gap 7 (2-11) mmol/L BUN 14 (6-24) mg/dL Creatinine 0.92 (0.67-1.17) mg/dL Est GFR ( Amer) 111.4 (>60) Est GFR (Non-Af Amer) 92.1 (>60) BUN/Creatinine Ratio 15.2 (8-20) Glucose 104 H (70-100) mg/dL Calcium 9.3 (8.6-10.3) mg/dL Total Bilirubin 0.50 (0.2-1.0) mg/dL AST 13 (13-39) U/L ALT 18 (7-52) U/L Alkaline Phosphatase 76 (34-104) U/L Lactate Dehydrogenase 193 (140-271) U/L Total Protein 6.8 (6.4-8.9) g/dL Albumin 3.8 (3.2-5.2) g/dL Globulin 3.0 (2-4) g/dL Albumin/Globulin Ratio 1.3 (1-3) Result Diagrams: 11/30/17 15:33 11/30/17 15:35 Lab Statement: Any lab studies that have been ordered have been reviewed, and results considered in the medical decision making process. - Ultrasound No standard instances Ultrasound Interpretation: Positive (See Comments) - Testicular US: Hypoechoic solid lesions in the upper and lower pole of the right testis as described above. Interrogation of the right testis demonstrates vascularity within the hypoechoic masses. The possibility of a right testicular neoplasm should BE considered. ED physician has reviewed this report. Ultrasound Interpretation Completed By: Radiologist Re-Evaluation - Re-Evaluation First Eval Re-Evaluation Time: 15:02 Change: Improved Comment: I spoke with the pt about his US results. The pt will be discharged home under stable conditions. GIGU Course/Dx - Course Course Of Treatment: Mr. Gonzales presented to the emergency department stating that a lump of been detected in his testicle in May but it began to hurt about 3 days ago. His testicle was irregular and ultrasound revealed a mass. I spoke with Dr. Lopez who agreed to follow him in the office and requested labs to be obtained. - Diagnoses Provider Diagnoses: Testicular lump Discharge - Sign-Out/Discharge Documenting (check all that apply): Discharge/Admit/Transfer - Pt will be discharged home. - Discharge Plan Condition: Stable Disposition: HOME Patient Education Materials: Testicle Pain (ED) Referrals: No Primary Care Phys,NOPCP [Primary Care Provider] - Eyal Lopez MD [Medical Doctor] - 12/02/17 Additional Instructions: Follow up with Dr. Lopez, urology, on Saturday, December,. Follow up with your primary care provider in 2-3 days. Return to the emergency department for any new or worsening symptoms. - Billing Disposition and Condition Condition: STABLE Disposition: Home The documentation as recorded by the scribe, Norris,Elena accurately reflects the service I personally performed and the decisions made by me, Tito Gutierres MD.
== END 2017-11-30 15:38 | disposition home or self-care (01) ==
LOC: ED 12:57
DX: N50.9 Disorder of male genital organs, unspecified (principal); Z87.891 Personal history of nicotine dependence
CPT/HCPCS: 36415; 76870; 80053; 82105; 83615; 84702; 85025; 99282

== ENCOUNTER 2017-12-11 06:14 | Day surgery (SDC) | payer MEDICAID, MEDICARE ==
--- NOTE | 2017-12-05 22:33 | HP ---
HISTORY AND PHYSICAL: DATE OF PLANNED ADMISSION AND SURGERY: 12/11/17 HISTORY OF PRESENT ILLNESS: Mr. 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 Mr. Gonzales presented to the emergency room about 10 days ago with right scrotal discomfort and a finding of a right testicular mass on self- examination. There is no past history of testicular trauma or surgery and no history of testicular maldescent. In the emergency room, the patient had a scrotal ultrasound, which showed 2 solid hypoechoic lesions in the upper pole and the lower pole of the right testis. The lower pole lesion was more suspicious and measured about 1.5 cm in size. The upper pole lesion was more hypoechoic and measured about 1 cm. No other abnormalities were noted. The left testis looked normal. The patient had testicular markers, which were all normal with the AFP at 1.6, hCG at 0.8, and LDH 193. 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 He has been asymptomatic from it and has had no recent workup. He denies any episodes of a gross hematuria or urinary tract infections. PAST MEDICAL HISTORY: Relevant for moderate obesity. There is past history of alcohol and drug abuse. He is a former smoker. MEDICATIONS: He is presently on no chronic medications. ALLERGIES: He denies any allergies to medications. FAMILY HISTORY: Unavailable as he was adopted, but he thinks there was a history of cardiac disease in his biological family. SOCIAL HISTORY: The patient is . He has a total of 10 biological children from 3 different partners. The patient is presently unemployed. PHYSICAL EXAMINATION GENERAL: Moderately overweight white male, who looks his age. VITAL SIGNS: Blood pressure 120/80, pulse of 60, oxygen saturation 95% on room air. LUNGS: Clear. HEART: Regular and rhythmic. No murmurs. BREASTS: He has no gynecomastia. ABDOMEN: Normal. EXTERNAL GENITALIA: He is circumcised. No penile lesions. TESTES: The left testis feels normal without any masses, hydrocele, or varicocele. The right testis is descended. There is a solid mass measuring about 2 cm noted in the lower pole. There is a subtle mass noted in the upper pole. No inguinal hernias noted on either side. LABORATORY DATA: Urinalysis shows +3 blood, trace protein, negative otherwise. IMPRESSION: 1. Right solid testicular masses that are consistent with testicular tumor by both physical examination and ultrasonography with normal testicular markers. 2. Microscopic hematuria with past history suggestive of renal abnormality. PLAN: Plan is for right radical orchiectomy. I discussed the operation in detail with the patient. Some of the potential complications including infection were discussed. After the pathology is out, he will need a workup including a CT of the abdomen and pelvis and that would allow the evaluation of his kidneys. He will need referral to oncology and possibly additional treatments depending on the pathology and on the mets work-up. I discussed all of the above plans with the patient. All his questions were answered. [id number]/[facility] #: [id number] ANA M
[~2017-12-11 06:14] MED LIST: Buffered Lidocaine 0.9% SYRIN* 5 ML/SYR SYRINGE INTRADERM ONE
[2017-12-11] MEDS ORDERED: ceFAZolin 2 GM PREMIX (*) 2 GM/50 ML BAG IVPB ONE (06:17)
[2017-12-11] MEDS ORDERED: Buffered Lidocaine 0.9% SYRIN* 5 ML/SYR SYRINGE ONE (06:17)
[2017-12-11] MEDS ORDERED: Lidocaine 1%* 5 ML VIAL ONE (07:09)
[2017-12-11] MEDS ORDERED: Bupivacaine 0.5% PF 10 ML VIAL INJ ONE ×2 (07:09→07:14)
[2017-12-11] MEDS ORDERED: Midazolam* 1 MG/ML 2 ML VIAL (2 MG) ONE (07:11)
[2017-12-11] MEDS ORDERED: fentaNYL* 50 MCG/ML 2 ML VIAL (100 MCG VIAL) ONE ×2 (07:11→07:47)
[2017-12-11] MEDS ORDERED: Lidocaine 2% PF * 5 ML VIAL ONE (07:33)
[2017-12-11] MEDS ORDERED: Famotidine IV* 10 MG/ML 2 ML (20 mg) ONE (07:47)
[2017-12-11] MEDS ORDERED: Propofol* 10 MG/ML 20 ML BTL IV PUSH ONE (07:47)
[2017-12-11] MEDS ORDERED: Dexamethasone IV* 4 MG/ML 1 ML (4 MG) ONE (07:47)
[2017-12-11] MEDS ORDERED: Ketorolac INJ* 30 MG/ML 1 ML VIAL ONE (07:47)
[2017-12-11] MEDS ORDERED: HYDROmorphone INJ* 0.5 MG/0.5 ML SYRINGE ONE (08:00)
[2017-12-11] MEDS ORDERED: PROCHLORPERAZINE INJ 5 MG/ML 2 ML VIAL IV PRN (08:17)
[2017-12-11] MEDS ORDERED: DiMENhydriNATE IV* 50 MG/ML VIAL IV PUSH PRN (08:17)
[2017-12-11] MEDS ORDERED: Naloxone* 0.4 MG/ML 1 ML VIAL IV PRN (08:17)
[2017-12-11] MEDS ORDERED: fentaNYL* 50 MCG/ML 2 ML VIAL (100 MCG VIAL) IV PRN (08:17)
[2017-12-11] MEDS ORDERED: Acetaminophen TAB* 325 MG PO PRN (08:17)
[2017-12-11] MEDS ORDERED: Levalbuterol 0.63MG/3ML NEB* UNIT OF USE INH PRN (08:17)
[2017-12-11] MEDS ORDERED: HYDROmorphone INJ* 0.5 MG/0.5 ML SYRINGE IV PRN (08:17)
[2017-12-11] MEDS ORDERED: Ondansetron INJ* 2 MG/ML VIAL IV PRN (08:17)
[2017-12-11] MEDS ORDERED: HYDROcodone/ACETAMIN 5-325 MG* 1 TAB PO PRN ×2 (08:17)
[2017-12-11] MEDS ORDERED: HYDROcodone/ACETAMIN 5-325 MG* 1 TAB ONE (09:03)
[2017-12-11 10:19] VITALS: BP 105/73
[2017-12-11] MEDS ORDERED: PROCHLORPERAZINE INJ 5 MG/ML 2 ML VIAL ONE (10:22)
[2017-12-11] MEDS ORDERED: Ondansetron INJ* 2 MG/ML VIAL ONE (10:22)
--- NOTE | 2017-12-11 21:17 | OP ---
DATE OF OPERATION: 12/11/17 [facility] DATE OF : 78 SURGEON: Eyal Lopez MD ANESTHESIOLOGIST: Jose Crouch MD ANESTHESIA: General. PRE-OP DIAGNOSIS: Right testicular tumors. POST-OP DIAGNOSIS: Right testicular tumors, pending pathology. OPERATIVE PROCEDURE: Right radical orchiectomy. INDICATIONS FOR PROCEDURE: Mr. Gonzales is a 37-year-old male who noted on self- examination to have a right testicular mass. Scrotal ultrasound showed two testicular masses, one located in the lower pole and another one in the upper pole. The lower pole mass looked highly suspicious for malignancy. The upper mass was hypoechoic. Testicular markers were all normal. The patient was admitted for right radical orchiectomy. Exam under anesthesia again confirmed the presence of a 1.5 to 2 cm mass in the lower pole of the right testis. It felt highly suspicious for malignancy. Upon right inguinal exploration, the spermatic cord looked normal. There was no inguinal hernia noted. DESCRIPTION OF PROCEDURE: After successful general anesthesia, the patient was placed in the supine position and was prepped and draped for a right inguinal incision. A right inguinal incision was then performed and deepened through the Renetta fascia. The bleeders were electrocoagulated and ligated with 3-0 Vicryl ties. The external oblique and external ring were partially opened. A branch of the ilioinguinal nerve was identified and retracted and preserved. The spermatic cord was identified at the level of the external ring. It was circumferentially dissected and a drain applied around it. The cord was then dissected all the way to the level of the internal ring until the identification of the reflection of the peritoneum. At that level, the spermatic cord was divided between Tammy clamps. The stump of the spermatic cord was then double ligated with 0 silk ties. The testicle was then delivered through the incision. The attachment between the tunica vaginalis and the scrotal skin was divided and the vessel was ligated. The specimen was then removed intact with the testicle within the tunica vaginalis. The specimen was sent fresh to pathology. The incision was then thoroughly irrigated with saline. There was very good hemostasis. The incision was then closed using 2-0 Vicryl for the Renetta fascia. A total of 20 cc of 0.5% Marcaine without epinephrine were used to infiltrate the incision for postoperative analgesia. The skin was then closed with running suture of 4-0 Monocryl. Steri-Strips were applied and a dressing was applied. The patient tolerated the procedure well and left the operating room in good condition. There was no blood loss. All the counts were correct. SPECIMENS: Right testis and spermatic cord. [id number]/[facility] #: [id number] MTDD
== END 2017-12-11 10:59 | disposition home or self-care (01) ==
LOC: OR 06:14
PROVIDERS: ATTEND Urology
DX: C62.11 Malignant neoplasm of descended right testis (principal); R31.29 Other microscopic hematuria
CPT/HCPCS: 88309; 88341; 88342; J0690; J0780; J1100; J1170; J1885; J2250; J2405; J2704; J3010

== ENCOUNTER 2018-01-04 12:47 | Emergency (ER) | payer SELFPAY ==
--- NOTE | 2018-01-04 14:09 | ED ---
GI/ HPI - History of Current Complaint Chief Complaint: EDGeneral Time Seen by Provider: 01/04/18 13:56 Stated Complaint: TESTICUL LUMP Hx Obtained From: Patient Onset/Duration: Started Days Ago, Still Present Timing: Constant Severity: Mild Current Severity: Mild Pain Intensity: 2 Additional Locations for Males: Testicles Pain Characteristics: Dull, Aching - Allergy/Home Medications Allergies/Adverse Reactions: Allergies Allergy/AdvReac Type Severity Reaction Status Date / Time raspberry Allergy Mild Hives Verified 01/04/18 12:56 PMH/Surg Hx/FS Hx/Imm Hx Endocrine/Hematology History: Denies: Hx Diabetes, Hx Thyroid Disease Cardiovascular History: Denies: Hx Hypertension Respiratory History: Denies: Hx Asthma, Hx Chronic Obstructive Pulmonary Disease (COPD) GI History: Denies: Hx Ulcer History: Reports: Other Problems/Disorders - right testicular mass Denies: Hx Renal Disease Psychiatric History: Denies: Hx Anxiety, Hx Depression - Cancer History Cancer Type, Location and Year: testicular - Surgical History Surgery Procedure, Year, and Place: right testicle Hx Anesthesia Reactions: No - never had surgery Infectious Disease History: No Infectious Disease History: Reports: Hx Shingles - x2 Denies: Hx Clostridium Difficile, Hx Hepatitis, Hx Human Immunodeficiency Virus (HIV), Hx of Known/Suspected MRSA, History Other Infectious Disease, Traveled Outside the [place] in Last 30 Days - Family History Known Family History: Positive: Hypertension, Diabetes, Other - Denies FHx of GI problems Family History: pt was adopted but knows there is heart disease and dm in his biological family - Social History Occupation: Employed Part-time Lives: With Family Alcohol Use: None Alcohol Amount: recovering alcoholic Substance Use Type: Reports: None Substance Use 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 Smoking Status (MU): Former Smoker Type: Cigarettes Amount Used/How Often: 1.5 ppd for 17 yrs Review of Systems Negative: Fever Positive: pain - dull aching pain in L testicle, other - lump on L testicle All Other Systems Reviewed And Are Negative: Yes Physical Exam - Summary Physical Exam Summary: Appearance: Well appearing, no pain distress Skin: warm, dry, reflects adequate perfusion Head/face: normal Eyes: EOMI, [place]IE ENT: normal Neck: supple, non-tender Respiratory: CTA, breath sounds present Cardiovascular: RRR, pulses symmetrical Abdomen: non-tender, soft Bowel Sounds: present Musculoskeletal: normal, strength/ROM intact Genitourinary: Normal aside from no testicle on R side. No mass on L testicle. No redness, no swelling Neuro: normal, sensory motor intact, A&Ox3 Triage Information Reviewed: Yes Vital Signs On Initial Exam: Initial Vitals Temp Pulse Resp BP Pulse Ox 98.4 F 76 16 152/92 97 01/04/18 12:52 01/04/18 12:52 01/04/18 12:52 01/04/18 12:52 01/04/18 12:52 Vital Signs Reviewed: Yes Diagnostics - Vital Signs Vital Signs Temp Pulse Resp BP Pulse Ox 01/04/18 12:52 98.4 F 76 16 152/92 97 - Laboratory Lab Statement: Any lab studies that have been ordered have been reviewed, and results considered in the medical decision making process. - Ultrasound No standard instances Ultrasound Interpretation Completed By: Radiologist - Testicular ultrasound revealed a cyst on the L testicle. ED Physician has reviewed this report. GIGU Course/Dx - Course Course Of Treatment: Patient with recent history of testicular carcinoma status post orchiectomy by urology. He feels as though there is a mass in his right hemiscrotum. This is the side of his orchiectomy. Ultrasound today shows a cyst and the epididymis on the left side. There is no other masses suspicious for cancer. He does have a urology follow-up on Saturday. Tumor markers were obtained. - Diagnoses Provider Diagnoses: Epididymal cyst, Hx of testicular cancer Discharge - Sign-Out/Discharge Documenting (check all that apply): Patient Departure - D/C - Discharge Plan Condition: Good Disposition: HOME Patient Education Materials: Scrotal Pain (ED) Referrals: Eyal Lopez MD [Medical Doctor] - Additional Instructions: Follow-up with your urologist on Saturday as scheduled. Return if worse or other concerns. - Billing Disposition and Condition Condition: GOOD Disposition: Home
[2018-01-04 14:59] VITALS: BP 150/66
--- NOTE | 2018-01-04 15:02 | RAD ---
Indication: Patient is status post right orchiectomy. Abnormal area felt in the left scrotum. Real-time sonography of the scrotum was performed. The left testis 4.2 x 2.5 x 2.9 cm. No intratesticular masses are noted. The epididymis measures 10 x 11 mm with a small right hydrocele. There is a left epididymal cyst measuring 1.5 x 1.1 x 1.2 cm. IMPRESSION: No intratesticular masses are noted. Cyst is noted in the left epididymal head measuring 1.5 x 1.1 x 1.2 cm. Patient is status post right orchiectomy.
== END 2018-01-04 14:50 | disposition home or self-care (01) ==
LOC: ED 12:47
DX: N50.3 Cyst of epididymis (principal); Z85.47 Personal history of malignant neoplasm of testis; Z87.891 Personal history of nicotine dependence
CPT/HCPCS: 76870; 82105; 84702; 99281

== ENCOUNTER 2018-03-31 09:50 | Emergency (ER) | payer SELFPAY ==
[2018-03-31 10:52] VITALS: BP 150/80
--- NOTE | 2018-03-31 11:19 | UC ---
Complaint Male HPI - HPI Summary HPI Summary: 38 y/o male with few hours onset of nausea, vomiting, fever, chills. NO prior symptoms. Patient was to have work this AM, works at [employer]. NO prior episodes, patient needs work note, staying hydrated. - History of Current Complaint Chief Complaint: UCRespiratory Stated Complaint: SORE THROAT Time Seen by Provider: 03/31/18 11:04 Hx Obtained From: Patient Onset/Duration: Sudden Onset Timing: Constant Pain Intensity: 5 - Allergies/Home Medications Allergies/Adverse Reactions: Allergies Allergy/AdvReac Type Severity Reaction Status Date / Time raspberry Allergy Mild Hives Verified 03/31/18 10:52 PMH/Surg Hx/FS Hx/Imm Hx Previously Healthy: Yes - Surgical History Surgical History: Yes Surgery Procedure, Year, and Place: right testicle - Family History Known Family History: Positive: None, Hypertension, Diabetes, Other - Denies FHx of GI problems Family History: pt was adopted but knows there is heart disease and dm in his biological family - Social History Alcohol Use: None Alcohol Amount: recovering alcoholic Substance Use Type: None Substance Use 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 Smoking Status (MU): Former Smoker Type: Cigarettes Amount Used/How Often: 1.5 ppd for 17 yrs When Did the Patient Quit Smoking/Using Tobacco: 2014 - Immunization History Most Recent Influenza Vaccination: 05/13/17 Vaccination Up to Date: Yes Review of Systems Constitutional: Chills, Fatigue Gastrointestinal: Vomiting, Nausea Is Patient Immunocompromised?: No All Other Systems Reviewed And Are Negative: Yes Physical Exam Triage Information Reviewed: Yes Appearance: Well-Appearing, No Pain Distress, Well-Nourished Vital Signs: Initial Vital Signs Temp 96.9 F 03/31/18 10:49 Pulse 86 03/31/18 10:49 Resp 18 03/31/18 10:49 BP 150/80 03/31/18 10:49 Pulse Ox 99 03/31/18 10:49 ENT: Positive: Pharynx normal Respiratory: Positive: Chest non-tender, Lungs clear, Normal breath sounds, No respiratory distress, No accessory muscle use Cardiovascular: Positive: RRR, No Murmur Abdomen Description: Positive: Nontender, No Organomegaly, Soft. Negative: CVA Tenderness (R), CVA Tenderness (L) Complaint Male Course/Dx - Course Course Of Treatment: acute vomiting, controlled. - Differential Dx/Diagnosis Provider Diagnoses: acute vomiting Discharge - Sign-Out/Discharge Documenting (check all that apply): Patient Departure All imaging exams completed and their final reports reviewed: No Studies - Discharge Plan Condition: Good Disposition: HOME Prescriptions: Acetic Acid 2 % OT Q6H #1 bottle Ciproflox/Dexameth OTIC.SUSP* [Ciprodex OTIC.SUSP*] 4 drop OTIC Q6H #1 btl Patient Education Materials: Acute Nausea and Vomiting (ED) Forms: *Work Release Referrals: No Primary Care Phys,NOPCP [Primary Care Provider] - Additional Instructions: - Increase fluid intake - WOrk note for three days - Increase hand washing - [place] diet - Return with fever, chills, unable to hold down liquids, lightheadedness - Billing Disposition and Condition Condition: GOOD Disposition: Home
== END 2018-03-31 11:22 | disposition home or self-care (01) ==
LOC: UCEAST 09:50
DX: R11.2 Nausea with vomiting, unspecified (principal)
CPT/HCPCS: 99211; G0463

== ENCOUNTER 2018-04-21 09:19 | Emergency (ER) | payer SELFPAY ==
[2018-04-21 09:50] VITALS: BP 133/81
--- NOTE | 2018-04-21 10:30 | UC ---
UC General HPI - HPI Summary HPI Summary: Patient here with and son. States he developed acute onset of nausea vomiting and diarrhea just prior to his [employer] shift at 4:30 AM. Last vomited or had diarrhea 3.5 hours ago. No abdominal pain. No fever. No CP or SOB. No cough. No congestion. +Sore throat - Child has URI symptoms. PMhx: being worked up for prostate vs bladder cancer. PMHx: None meds: None No longer nauseated. - History of Current Complaint Chief Complaint: UCGeneralIllness Stated Complaint: VOMITTING Time Seen by Provider: 04/21/18 10:10 Hx Obtained From: Patient Onset/Duration: Sudden Onset Pain Intensity: 4 - Allergy/Home Medications Allergies/Adverse Reactions: Allergies Allergy/AdvReac Type Severity Reaction Status Date / Time raspberry Allergy Mild Hives Verified 04/21/18 09:50 Home Medications: Home Medications NK [No Home Medications Reported] 04/21/18 [History Confirmed 04/21/18] PMH/Surg Hx/FS Hx/Imm Hx Previously Healthy: Yes - Surgical History Surgical History: Yes Surgery Procedure, Year, and Place: right testicle - Family History Known Family History: Positive: None, Hypertension, Diabetes, Other - Denies FHx of GI problems Family History: pt was adopted but knows there is heart disease and dm in his biological family - Social History Alcohol Use: None Alcohol Amount: recovering alcoholic Substance Use Type: None Substance Use 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 Smoking Status (MU): Former Smoker Type: Cigarettes Amount Used/How Often: 1.5 ppd for 17 yrs When Did the Patient Quit Smoking/Using Tobacco: 2014 - Immunization History Most Recent Influenza Vaccination: 05/13/17 Vaccination Up to Date: Yes Review of Systems All Other Systems Reviewed And Are Negative: Yes Constitutional: Positive: Negative Skin: Positive: Negative Respiratory: Positive: Negative Gastrointestinal: Positive: Vomiting, Diarrhea Is Patient Immunocompromised?: No Physical Exam Triage Information Reviewed: Yes Appearance: Well-Appearing Vital Signs: Initial Vital Signs Temp 98.0 F 04/21/18 09:47 Pulse 72 04/21/18 09:47 Resp 18 04/21/18 09:47 BP 133/81 04/21/18 09:47 Pulse Ox 100 04/21/18 09:47 Vital Signs Reviewed: Yes ENT: Positive: Pharyngeal erythema, Tonsillar swelling Dental Exam: Other - poor dentition Neck: Positive: Supple Respiratory: Positive: Chest non-tender, Lungs clear Cardiovascular: Positive: RRR Abdomen Description: Positive: Nontender, No Organomegaly, Soft Bowel Sounds: Positive: Present Skin Exam: Normal Course/Dx - Course Course Of Treatment: This is a 38 yr old with unremarkable PMHx who developed acute onset of N/V/D. Assessment. Nontoxic. Symptoms resolving. Plan. Continue to push fluids. If symptoms persist and are unable to keep anything down, return to urgent care. If you develop abdominal pain with vomiting and diarrhea - return to urgent care - Differential Dx - Multi-Symptom Provider Diagnoses: Gastroenteritis Discharge - Sign-Out/Discharge Documenting (check all that apply): Patient Departure All imaging exams completed and their final reports reviewed: No Studies - Discharge Plan Condition: Good Disposition: HOME Patient Education Materials: Gastroenteritis (ED) Forms: *Work Release Referrals: No Primary Care Phys,NOPCP [Primary Care Provider] - Additional Instructions: Continue to push fluids If symptoms persist and are unable to keep anything down, return to urgent care If you develop abdominal pain with vomiting and diarrhea - return to urgent care - Billing Disposition and Condition Condition: GOOD Disposition: Home
== END 2018-04-21 10:40 | disposition home or self-care (01) ==
LOC: UCEAST 09:19
DX: K52.9 Noninfective gastroenteritis and colitis, unspecified (principal)
CPT/HCPCS: 99211; G0463

== ENCOUNTER 2018-04-25 13:04 | Emergency (ER) | payer SELFPAY ==
[2018-04-25 14:40] VITALS: BP 134/74
--- NOTE | 2018-04-25 14:56 | UC ---
Throat Pain/Nasal [place] HPI - HPI Summary HPI Summary: 38-year-old male comes in to clinic today with a chief complaint of nasal congestion sore throat and vomiting. He's had this for about 5 days. This morning when he woke up he had some was congestion he gagged on any vomited. He had did miss work because of that. No fevers. The rest of his family's been sick with a BETTER at about [place]. No shortness breath. - History of Current Complaint Chief Complaint: UCRespiratory Stated Complaint: SORE THROAT Time Seen by Provider: 04/25/18 14:42 Pain Intensity: 0 - Allergies/Home Medications Allergies/Adverse Reactions: Allergies Allergy/AdvReac Type Severity Reaction Status Date / Time raspberry Allergy Mild Hives Verified 04/25/18 14:40 PMH/Surg Hx/FS Hx/Imm Hx Previously Healthy: Yes - Surgical History Surgical History: Yes Surgery Procedure, Year, and Place: right testicle - Family History Known Family History: Positive: None, Hypertension, Diabetes, Other - Denies FHx of GI problems Family History: pt was adopted but knows there is heart disease and dm in his biological family - Social History Alcohol Use: None Alcohol Amount: recovering alcoholic Substance Use Type: None Substance Use 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 Smoking Status (MU): Former Smoker Type: Cigarettes Amount Used/How Often: 1.5 ppd for 17 yrs When Did the Patient Quit Smoking/Using Tobacco: 2014 - Immunization History Most Recent Influenza Vaccination: 05/13/17 Vaccination Up to Date: Yes Review of Systems All Other Systems Reviewed And Are Negative: Yes Constitutional: Positive: Negative Skin: Positive: Negative Eyes: Positive: Negative ENT: Positive: Sore Throat, Nasal Discharge Respiratory: Positive: Negative Cardiovascular: Positive: Negative Gastrointestinal: Positive: Vomiting Motor: Positive: Negative Neurovascular: Positive: Negative Musculoskeletal: Positive: Negative Neurological: Positive: Negative Psychological: Positive: Negative Is Patient Immunocompromised?: No Physical Exam Triage Information Reviewed: Yes Appearance: No Pain Distress, Well-Nourished, Ill-Appearing - MILD Vital Signs: Initial Vital Signs Temp 97.4 F 04/25/18 14:37 Pulse 69 04/25/18 14:37 Resp 18 04/25/18 14:37 BP 134/74 04/25/18 14:37 Pulse Ox 100 04/25/18 14:37 Vital Signs Reviewed: Yes Eye Exam: Normal Eyes: Positive: Conjunctiva Clear ENT: Positive: Pharyngeal erythema, Nasal congestion, Nasal drainage, TMs normal Neck exam: Normal Neck: Positive: Supple Respiratory Exam: Normal Respiratory: Positive: Lungs clear, Normal breath sounds, No respiratory distress Cardiovascular: Positive: RRR Musculoskeletal Exam: Normal Musculoskeletal: Positive: Strength Intact, ROM Intact Neurological Exam: Normal Neurological: Positive: Alert, Muscle Tone Normal Psychological Exam: Normal Psychological: Positive: Age Appropriate Behavior Skin Exam: Normal Throat Pain/Nasal Course/Dx - Course Course Of Treatment: This is day 5 of this upper respiratory tract infection. Most probable cause is a viral infection. Sounds like the patient had some much nasal congestion that he vomited this morning. Is not nauseous now he has no abdominal pain. Continue symptomatic treatment reevaluation if worse or any questions or concerns. - Differential Dx/Diagnosis Provider Diagnoses: UPPER RESPIRATORY TRACT INFECTION. VOMITING Discharge - Sign-Out/Discharge Documenting (check all that apply): Patient Departure All imaging exams completed and their final reports reviewed: No Studies - Discharge Plan Condition: Stable Disposition: HOME Patient Education Materials: Upper Respiratory Infection (ED) Forms: *Work Release Referrals: [facility]FERRAL [Outside] Additional Instructions: FOLLOW UP WITH YOUR DOCTOR IF NOT COMPLETELY IMPROVED. GET RECHECKED FOR ANY WORSENING OF YOUR CONDITION OR QUESTIONS OR CONCERNS. - Billing Disposition and Condition Condition: STABLE Disposition: Home
== END 2018-04-25 15:03 | disposition home or self-care (01) ==
LOC: UCEAST 13:04
DX: J06.9 Acute upper respiratory infection, unspecified (principal); R11.10 Vomiting, unspecified; Z87.891 Personal history of nicotine dependence
CPT/HCPCS: 99211; G0463

== ENCOUNTER 2018-07-16 15:17 | Emergency (ER) | payer MEDICAID, OTHER ==
[2018-07-16 16:55] VITALS: BP 125/80
--- NOTE | 2018-07-16 17:17 | UC ---
Respiratory Complaint HPI - HPI Summary HPI Summary: The patient is a 38-year-old male that has been ill for 5-6 days. He has had nasal congestion postnasal drip sore throat and cough. For the last 3-4 days he has had fever chills and myalgias. He denies any chest pain or shortness of breath. He has had some nausea and vomiting. He states that he needs a note for work. - History of Current Complaint Chief Complaint: UCGeneralIllness Stated Complaint: VOMITING Time Seen by Provider: 07/16/18 17:07 Hx Obtained From: Patient Onset/Duration: Gradual Onset, Lasting Days Timing: Constant Severity Initially: Mild Severity Currently: Moderate Pain Intensity: 5 Pain Scale Used: 0-10 Numeric Character: Cough: Nonproductive Aggravating Factors: Nothing Associated Signs And Symptoms: Positive: Fever, Chills, Nasal Congestion - Allergies/Home Medications Allergies/Adverse Reactions: Allergies Allergy/AdvReac Type Severity Reaction Status Date / Time raspberry Allergy Mild Hives Verified 07/16/18 16:56 Home Medications: Home Medications Dm/PE/Acetaminophen/Doxylamine [Vicks Dayquil/Nyquil Cold] 1 mis PO ONCE PRN [History Confirmed 07/16/18] PMH/Surg Hx/FS Hx/Imm Hx Previously Healthy: Yes Cancer History: Other Other Cancer History: testicular - Surgical History Surgical History: Yes Surgery Procedure, Year, and Place: right testicle - Family History Known Family History: Positive: None, Hypertension, Diabetes, Other - Denies FHx of GI problems Family History: pt was adopted but knows there is heart disease and dm in his biological family - Social History Alcohol Use: None Alcohol Amount: recovering alcoholic Substance Use Type: None Substance Use 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 Smoking Status (MU): Former Smoker Type: Cigarettes Amount Used/How Often: 1.5 ppd for 17 yrs When Did the Patient Quit Smoking/Using Tobacco: 2014 - Immunization History Most Recent Influenza Vaccination: 05/13/17 Vaccination Up to Date: Yes Review of Systems All Other Systems Reviewed And Are Negative: Yes Constitutional: Positive: Fever, Chills, Fatigue Skin: Positive: Negative Eyes: Positive: Negative ENT: Positive: Nasal Discharge, Sinus Congestion Respiratory: Positive: Cough Cardiovascular: Positive: Negative Gastrointestinal: Positive: Vomiting, Nausea Genitourinary: Positive: Negative Motor: Positive: Negative Neurovascular: Positive: Negative Musculoskeletal: Positive: Myalgia Neurological: Positive: Headache Psychological: Positive: Negative Physical Exam Triage Information Reviewed: Yes Appearance: Well-Appearing, No Pain Distress, Well-Nourished Vital Signs: Initial Vital Signs Temp 97.9 F 07/16/18 16:50 Pulse 101 07/16/18 16:50 Resp 18 07/16/18 16:50 BP 125/80 07/16/18 16:50 Pulse Ox 99 07/16/18 16:50 Vital Signs Reviewed: Yes Eyes: Positive: Conjunctiva Clear ENT: Positive: Hearing grossly normal, Pharyngeal erythema, Nasal congestion. Negative: Tonsillar swelling, Tonsillar exudate, Muffled voice, Hoarse voice Neck: Positive: Supple, Nontender, No Lymphadenopathy Respiratory: Positive: Lungs clear, Normal breath sounds, No respiratory distress, No accessory muscle use Cardiovascular: Positive: RRR, Tachycardia Musculoskeletal: Positive: ROM Intact, No Edema Neurological: Positive: Alert Psychological Exam: Normal Skin Exam: Normal UC Diagnostic Evaluation - Laboratory O2 Sat by Pulse Oximetry: 99 - normal/not hypoxic Respiratory Course/Dx - Differential Dx/Diagnosis Provider Diagnosis: Influenza-like illness Discharge - Sign-Out/Discharge Documenting (check all that apply): Patient Departure All imaging exams completed and their final reports reviewed: Yes - Discharge Plan Condition: Stable Disposition: HOME Patient Education Materials: Viral Syndrome (ED) Forms: *Work Release Referrals: Brian Grey MD [Primary Care Provider] - Additional Instructions: recheck in 3-4 days if not better recheck sooner for new or worsening symptoms - Billing Disposition and Condition Condition: STABLE Disposition: Home
== END 2018-07-16 17:55 | disposition home or self-care (01) ==
LOC: UCEAST 15:17
DX: J11.1 Influenza due to unidentified influenza virus with other respiratory manifestations (principal); Z87.891 Personal history of nicotine dependence
CPT/HCPCS: 71046; 99211; G0463

== ENCOUNTER 2018-11-12 09:14 | Day surgery (SDC) | payer OTHER ==
[~2018-11-12 09:14] MED LIST changes: -Buffered Lidocaine 0.9% SYRIN* 5 ML/SYR SYRINGE INTRADERM ONE; +Buffered Lidocaine 1% SYRIN* 1 ML/SYRINGE INTRADERM ONE; +Famotidine IV* 10 MG/ML 2 ML (20 mg) IV ONE; +Lactated Ringers 1000 ML Bag* 1,000 ML IV SCH
[2018-11-12] MEDS ORDERED: ceFAZolin 2 GM PREMIX in ORs 2 GM/50 ML BAG ONE (10:00)
[2018-11-12] MEDS ORDERED: Famotidine IV* 10 MG/ML 2 ML (20 mg) ONE (10:00)
[2018-11-12] MEDS ORDERED: Ondansetron INJ* 2 MG/ML VIAL ONE (11:32)
[2018-11-12] MEDS ORDERED: Propofol* 10 MG/ML 20 ML BTL ONE (11:32)
[2018-11-12] MEDS ORDERED: Naloxone* 0.4 MG/ML 1 ML VIAL IV PRN (11:51)
[2018-11-12] MEDS ORDERED: DiMENhydriNATE IV* 50 MG/ML VIAL IV PUSH PRN (11:51)
[2018-11-12] MEDS ORDERED: oxyCODONE/Acetamin 5/325 MG* TAB PO PRN (11:51)
[2018-11-12] MEDS ORDERED: Ondansetron INJ* 2 MG/ML VIAL IV PRN (11:51)
[2018-11-12] MEDS ORDERED: fentaNYL* 50 MCG/ML 2 ML VIAL (100 MCG VIAL) ONE (11:55)
[2018-11-12] MEDS ORDERED: Midazolam* 1 MG/ML 5 ML VIAL (5 MG) ONE (11:55)
[2018-11-12] MEDS ORDERED: Lidocaine 1% MPF wEPI 200,000* 30 ML SDV ONE (12:01)
[2018-11-12] MEDS ORDERED: Lidocain 1% EPI 1:100,000 * 30 ML MDV ONE (12:53)
[2018-11-12 13:30] VITALS: BP 128/98
--- NOTE | 2018-11-12 14:33 | BRIEFOPN ---
Brief Operative Note - Surgery Procedures: Procedures Pre-OP Diagnoses: testicular ca Post-op Diagnosis: same Procedure: Insertion of powerport Surgeon: Ernie Asst: none Anethesia: local, MAC EBL: minimal IVF: minimal Specimen: none Drains: none 8Fr single lumen power port via R SCV
--- NOTE | 2018-11-12 15:23 | OP ---
CC: Dr. Brian Grey, Primary Care Doctor; Dr. Eyal Lopez * DATE OF OPERATION: 11/12/18 - [facility] DATE OF : 78 SURGEON: Dajuan Klein MD MACHINE MOLDER SQUEEZE: None. ANESTHESIOLOGIST: Dr. Thao. ANESTHESIA: Local MAC anesthesia. PRE-OP DIAGNOSIS: Testicular cancer, metastatic. POST-OP DIAGNOSIS: Testicular cancer, metastatic. OPERATIVE PROCEDURE: Insertion of PowerPort. ESTIMATED BLOOD LOSS: Minimal blood loss. FLUIDS: Minimal crystalloid fluid given. INSTRUMENT: 8-Georgian PowerPort tubing placed via the right subclavian vein. DRAINS: None. COMPLICATIONS: None. DESCRIPTION OF PROCEDURE: Mr. Gonzales was identified in the preoperative area, marked, consent was signed. He was then taken to the operating room, placed on the operating table in supine position. Preoperative antibiotics were given. Sequential devices were placed on bilateral lower extremities. Gentle sedation was given. The patient's right upper chest and neck were clipped off hair and prepped and draped in standard surgical fashion. A time-out was performed. Injection of lidocaine along the proposed was carried out. The patient was then placed in a Trendelenburg position and the right subclavian vein was accessed on first attempt. A wire inserted under fluoroscopy into the superior vena cava. Next, an incision inferior to the wire was made and a pocket was made for the PowerPort. The wire was then brought into this incision site and the vein was dilated with the given dilators until the split-away catheter could be placed appropriately. This was all done under fluoroscopy and next, an 8-Georgian tubing was inserted and cut to size knowing its location under fluoroscopy of approximately 17 cm from the exit site, it was attached to pre-flushed port, which was then dropped into the pocket and sutured at the medial and lateral aspects with 0-Prolene sutures. The wound was then irrigated and reapproximated with 3-0 Vicryl sutures, followed by 4-0 Monocryl subcuticular sutures. Steri-Strips and sterile dressing were applied. The patient tolerated the procedure well. [id number]/CPS #: [id number] MTDD
== END 2018-11-12 14:02 | disposition home or self-care (01) ==
LOC: OR 09:14
PROVIDERS: ATTEND Surgery
DX: C62.90 Malignant neoplasm of unspecified testis, unspecified whether descended or undescended (principal); Z87.891 Personal history of nicotine dependence
CPT/HCPCS: 76000; J0690; J1642; J2001; J2250; J2405; J2704; J3010

== ENCOUNTER 2019-01-11 17:27 | Inpatient (IN) | payer OTHER ==
[2019-01-11] MEDS ORDERED: Metoclopramide IV* 5 MG/ML 2 ML VIAL IV ONE (18:44)
[2019-01-11] MEDS ORDERED: Lidocaine 2% VISCOUS* 15 ML UDC PO ONE (18:44)
[2019-01-11] MEDS ORDERED: NS 0.9% 1000 ML** 1,000 ML IV ONE ×2 (18:44→20:48)
--- NOTE | 2019-01-11 18:46 | ED ---
Nausea/Vomiting/Diarrhea HPI - HPI Summary HPI Summary: Patient with history of testicular cancer currently receiving chemotherapy 5 times a week sent from oncology DET for further evaluation of fever, sore throat and vomiting. Patient states he's had sore throat for 2 weeks which has led to increased in chronic cough which is noted to increase in chronic vomiting subsequent to chemotherapy. Also complains of intermittent diarrhea from chemotherapy with current active diarrhea symptoms. Denies CP, SOB, abdominal pain, change in urine. Temperature at oncology 100.4. - History of Current Complaint Chief Complaint: EDNauseaVomitDiarrh Stated Complaint: SENT BEEN DOCTOR FEVER, THROWING UP PER PT Time Seen by Provider: 01/11/19 17:48 Hx Obtained From: Patient, Family/Access Representative Onset/Duration: Gradual Onset, Lasting Days Severity Currently: Severe Pain Intensity: 9 Pain Scale Used: 0-10 Numeric Alleviating Factor(s): Nothing Vomiting Frequency: Every 15-60 minutes Vomiting Characteristics: Retching, Nonbilious Diarrhea Frequency: Every 3-4 hours Diarrhea Characteristics: Watery - Allergies/Home Medications Allergies/Adverse Reactions: Allergies Allergy/AdvReac Type Severity Reaction Status Date / Time raspberry Allergy Mild Hives Verified 01/11/19 17:31 Home Medications: Home Medications LORazepam TAB(*) [Ativan 0.5 MG TAB (*)] 0.5 mg PO BID 01/11/19 [History Confirmed 01/11/19] PMH/Surg Hx/FS Hx/Imm Hx Endocrine/Hematology History: Denies: Hx Diabetes, Hx Thyroid Disease Cardiovascular History: Reports: Hx Hypertension Respiratory History: Denies: Hx Asthma, Hx Chronic Obstructive Pulmonary Disease (COPD) GI History: Denies: Hx Ulcer History: Reports: Other Problems/Disorders - right testicular mass Denies: Hx Dialysis, Hx Renal Disease Musculoskeletal History: Reports: Hx Arthritis - POSSIBLY IN HANDS Sensory History: Denies: Hx Eye Prosthesis Opthamlomology History: Denies: Hx Legally Blind EENT History: Denies: Hx Deafness Neurological History: Denies: Hx Developmental Delay Psychiatric History: Denies: Hx Anxiety, Hx Depression - Cancer History Cancer Type, Location and Year: testicular - Surgical History Surgery Procedure, Year, and Place: right testicle Hx Anesthesia Reactions: No - never had surgery Infectious Disease History: No Infectious Disease History: Reports: Hx Shingles - x2 Denies: Hx Clostridium Difficile, Hx Hepatitis, Hx Human Immunodeficiency Virus (HIV), Hx of Known/Suspected MRSA, History Other Infectious Disease, Traveled Outside the [place] in Last 30 Days - Family History Known Family History: Positive: None, Hypertension, Diabetes, Other - Denies FHx of GI problems Family History: pt was adopted but knows there is heart disease and dm in his biological family - Social History Alcohol Use: None Alcohol Amount: recovering alcoholic Substance Use Type: Reports: None Substance Use 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 Hx Tobacco Use: Yes Smoking Status (MU): Former Smoker Type: Cigarettes Amount Used/How Often: 1.5 ppd for 17 yrs Length of Time of Smoking/Using Tobacco: 17 YRS Have You Smoked in the Last Year: No Review of Systems Positive: Fever Eyes: Negative Positive: Sore Throat Cardiovascular: Negative Positive: Cough Positive: Vomiting, Diarrhea, Nausea Genitourinary: Negative Musculoskeletal: Negative Skin: Negative Neurological: Negative Psychological: Normal All Other Systems Reviewed And Are Negative: Yes Physical Exam Triage Information Reviewed: Yes Vital Signs On Initial Exam: Initial Vitals Temp Pulse Resp BP Pulse Ox 98.4 F 130 16 99/76 96 01/11/19 17:27 01/11/19 17:27 01/11/19 17:27 01/11/19 17:27 01/11/19 17:27 Vital Signs Reviewed: Yes Appearance: Positive: Well-Appearing Skin: Positive: Warm Head/Face: Positive: Normal Head/Face Inspection Eyes: Positive: Normal ENT: Positive: Normal ENT inspection Neck: Positive: Supple Respiratory/Lung Sounds: Positive: Clear to Auscultation Cardiovascular: Positive: Normal Abdomen Description: Positive: Nontender Musculoskeletal: Positive: Normal Neurological: Positive: Normal Psychiatric: Positive: Normal AVPU Assessment: Alert - Paulie Coma Scale Best Eye Response: 4 - Spontaneous Best Motor Response: 6 - Obeys Commands Best Verbal Response: 5 - Oriented Coma Scale Total: 15 Diagnostics - Vital Signs Vital Signs Temp Pulse Resp BP Pulse Ox 01/11/19 17:27 98.4 F 130 16 99/76 96 - Laboratory Result Diagrams: 01/12/19 05:20 01/12/19 05:20 Lab Statement: Any lab studies that have been ordered have been reviewed, and results considered in the medical decision making process. Naus/Vom/Diarrhea Course/Dx - Course Course Of Treatment: Patient with history of testicular cancer currently receiving chemotherapy 5 times a week sent from oncology DET for further evaluation of fever, sore throat and vomiting. Patient states he's had sore throat for 2 weeks which has led to increased in chronic cough which is noted to increase in chronic vomiting subsequent to chemotherapy. Also complains of intermittent diarrhea from chemotherapy with current active diarrhea symptoms. Denies CP, SOB, abdominal pain, change in urine. Temperature at oncology 100.4. Temp 100.9 orally. Patient tachycardic. WBC 0.6. Absolute neutrophils 0.1. History of same. Labs otherwise unremarkable. Chest x-ray unremarkable. Urine does not indicate UTI. Patient admitted to hospitalist for neutropenic fever. Started on cefepime and vancomycin per hospitalist recommendation - Differential Dx/Diagnosis Provider Diagnosis: Neutropenic fever Condition At Discharge: Stable Discharge - Sign-Out/Discharge Documenting (check all that apply): Patient Departure Patient Received Moderate/Deep Sedation with Procedure: No - Discharge Plan Condition: Stable Disposition: ADMITTED TO [facility] - Billing Disposition and Condition Condition: STABLE Disposition: Admitted to [facility] - Attestation Statements Provider Attestation: I was available for consultation for this patient. I did not evaluate the patient or participate in any medical decision making or disposition decisions unless I am specifically named in the chart as having consulted on the patient. If I have consulted on the patient, please see my own ED note on the patient encounter. Linda Conte MD
[2019-01-11 18:55] LABS: Rapid Strep Molecular Negative (Negative)
[2019-01-11 19:16] LABS: ABS Lymphocytes 0.4 10^3/ul (1.0-4.8); ABS Monocytes 0.2 10^3/ul (0-0.8); Eosinophil % 0.7 %; Hematocrit 30 % (42-52); Hemoglobin 10.8 g/dL (14.0-18.0); Lymphocyte % 58.7 %; Mean Corpuscular HGB Conc 36 g/dL (31-36); Mean Corpuscular Hemoglobin 30 pg (27-31); Mean Corpuscular Volume 85 fL (80-94); Mean Platelet Volume 7.7 fL (7.4-10.4); Platelet Count 34 10^3/uL (150-450); Red Blood Count 3.58 10^6 /uL (4.18-5.48); Red Cell Distribution Width 13 % (10-15); White Blood Count 0.6 10^3/uL (3.5-10.8)
[2019-01-11 19:17] LABS: ABS Neutrophils 0.1 10^3/ul (1.5-7.7)
[2019-01-11 19:21] LABS: Albumin 3.9 g/dL (3.2-5.2); Albumin/Globulin Ratio 1.3 (1-3); BUN/Creatinine Ratio 15.7 (8-20); C Reactive Protein 82.47 mg/L (<8.01); EGFR African American 92.1 (>60); EGFR Non-African American 76.1 (>60); Globulin 2.9 g/dL (2-4); Potassium 3.5 mmol/L (3.5-5.0); Total Bilirubin 0.6 mg/dL (0.2-1.0); Total Protein 6.8 g/dL (6.4-8.9)
[2019-01-11] MEDS ORDERED: Lorazepam PYXIS KEY PRN (19:54)
[2019-01-11] MEDS ORDERED: LORazepam INJ* 2 MG/ML 1 ML VIAL IV ONE (19:54)
[2019-01-11] MEDS ORDERED: Lorazepam PYXIS KEY ONE (20:18)
[2019-01-11] MEDS ORDERED: Cefepime(*) 2 GM in NS 0.9% 50 ML* 50 ML IVPB ONE (21:16)
[2019-01-11] MEDS ORDERED: Vancomycin(*) 1,000 MG in NS 0.9% 250 ML* 250 ML IVPB ONE (21:16)
[2019-01-11] MEDS ORDERED: NS 0.9% 50 ML* 50 ML ONE (21:22)
[2019-01-11] MEDS ORDERED: Cefepime 2 GM in Dextrose(*) 2 GM/50 ML BAG IV ONE (21:44)
[2019-01-12] MEDS ORDERED: Acetaminophen TAB* 325 MG PO PRN (00:15)
[2019-01-12] MEDS ORDERED: Vancomycin(*) 1,000 MG in NS 0.9% 250 ML* 250 ML IVPB ONE (00:20)
[2019-01-12 00:58] LABS: Urine Appearance Cloudy; Urine Bacteria Absent (Absent); Urine Bilirubin Negative (Negative); Urine Blood 2+ (Negative); Urine Color Yellow; Urine Glucose Negative (Negative); Urine Ketones 1+ (Negative); Urine Nitrite Negative (Negative); Urine Protein 1+(30 mg/dL) (Negative); Urine Red Blood Cell 2+(6-10/hpf) (Absent); Urine Specific Gravity 1.019 (1.010-1.030); Urine Urobilinogen Negative (Negative); Urine White Blood Cell 1+(6-10/hpf) (Absent)
[2019-01-12] MEDS: NS 0.9% 1000 ML** 1,000 ML IV SCH ×3 (01:37→22:37)
--- NOTE | 2019-01-12 02:20 | HP ---
AMENDED REPORT NOW INCLUDES DATE OF ADMISSION CC: Dr. Brian Grey ADMISSION HISTORY AND PHYSICAL: DATE OF ADMISSION: 01/12/19 CHIEF COMPLAINT: Fever. HISTORY OF PRESENT ILLNESS: This is a 38-year-old male with past medical history of testicular cancer, status post right radical orchiectomy in November 2017 and did not receive any chemo and radiation after that and was being monitored by Dr. Grey at the cancer center, and a repeat CAT scan in October suggested that the patient now has recurrence of his malignancy in his lymph nodes, so was restarted on chemotherapy as of 11/17/18 and he has been getting chemo. His most recent chemo was last Saturday and he was also noted to have some drop in his hemoglobin, so he received a packed RBC transfusion within the last week. He comes in today because he started developing fever. The patient otherwise offers no other complaints. He has been having severe vomiting due to his chemotherapy and during this weekend, he has been having recurrent diarrhea, which is new. The patient otherwise offers no abdominal pain, no chest pain, no cough, no shortness of breath, no palpitations. No urinary burning sensation or pain with urination. PAST MEDICAL HISTORY: As mentioned, testicular cancer and some anxiety. PAST SURGICAL HISTORY: He has had a right radical orchiectomy in December 2017 and he has had chemotherapy port placed in 2018 in the right subclavian vein. HOME MEDICATIONS: The patient is currently only on Ativan 0.5 mg oral p.o. b.i.d. and Vicks DayQuil/NyQuil Cold and Flu capsule as needed for his fever. ALLERGIES: The patient states he is allergic to raspberry, which causes him to have hives. FAMILY HISTORY: Unable to obtain as the patient is adopted. SOCIAL HISTORY: The patient is a former smoker, quit in 2014. Denies any alcohol or drug use and works at [employer] He previously had a history of alcohol abuse with up to 20 shots per day, but he has recovered now. He is a recovering alcoholic. His cigarette smoking includes that he started smoking at age 12 and quit at age 33. He used to smoke one and a half packs per day. REVIEW OF SYSTEMS: A 14-point review of systems did not reveal any new information, other than what is stated in the HPI. PHYSICAL EXAMINATION GENERAL: The patient is awake, alert, and oriented x3. He does not appear to be in any acute respiratory distress. VITAL SIGNS: In the ER, BP was noted to be 118/85, heart rate 89, respiration rate 16, oxygen saturation 96% on room air, temperature max was recorded at 100.9. HEAD AND NECK: Atraumatic, normocephalic. Bilateral pupils are reactive. Oral mucosa was dry. Neck: Supple. No jugular venous distention. LUNGS: Clear to auscultation bilaterally. No wheezing, rhonchi, or rales. HEART: S1, S2. Regular rate and rhythm. ABDOMEN: Soft, nontender, nondistended. EXTREMITIES: No cyanosis, clubbing, or edema. DIAGNOSTIC STUDIES/LAB DATA: Labs: CBC shows neutropenia with absolute neutrophil count of about 100, hemoglobin was 10.8, hematocrit 30, and platelet count was noted to be low as well at 34. Comprehensive metabolic panel was unremarkable, except for elevated C-reactive protein of 82. Rapid Strep was noted to be negative. Portable chest x-ray appeared to be normal with the right subclavian PowerPort present, but otherwise no obvious infiltrates were noted. IMPRESSION: This is a 38-year-old male with testicular cancer, on chemotherapy , here with neutropenia and fever. ASSESSMENT AND PLAN: 1. Neutropenia and pancytopenia including anemia and thrombocytopenia, likely all secondary to chemotherapy usage with additional fever. We will start the patient on vancomycin and cefepime to cover broad spectrum and we will consider further antibiotics based on Dr. Grey's evaluation in the morning. 2. History of anxiety. Restart home Ativan. 3. DVT prophylaxis with sequential compression devices. [id number]/[facility] #: [id number] [facility]OSPITALRic
[2019-01-12 05:38] LABS: Hematocrit 27 % (42-52); Hemoglobin 9.4 g/dL (14.0-18.0); Mean Corpuscular HGB Conc 35 g/dL (31-36); Mean Corpuscular Hemoglobin 30 pg (27-31); Mean Corpuscular Volume 86 fL (80-94); Mean Platelet Volume 7.7 fL (7.4-10.4); Platelet Count 28 10^3/uL (150-450); Red Blood Count 3.12 10^6 /uL (4.18-5.48); Red Cell Distribution Width 13 % (10-15); White Blood Count 0.8 10^3/uL (3.5-10.8)
[2019-01-12 05:50] LABS: BUN/Creatinine Ratio 16.8 (8-20); EGFR African American 106.8 (>60); EGFR Non-African American 88.3 (>60); Potassium 3.3 mmol/L (3.5-5.0)
[2019-01-12 06:20] LABS: ABS Lymphocytes 0.5 10^3/ul (1.0-4.8); ABS Monocytes 0.3 10^3/ul (0-0.8); Eosinophil % 0.2 %; Lymphocyte % 58.2 %; Nucleated Red Blood Cells % 0.3
[2019-01-12] MEDS: LORazepam TAB(*) 0.5 MG PO SCH ×2 (09:04→21:24)
[2019-01-12] MEDS: Cefepime 2 GM in Dextrose(*) 2 GM/50 ML BAG IV SCH ×2 (09:05→21:21)
--- NOTE | 2019-01-12 09:31 | PN ---
Progress Note - Progress Note Date of Service: 01/12/19 SOAP: Subjective: []Feels fine today. Nausea this AM, but no emesis. Loose stools but hasn't used imodium and he is worried about constipation and pain due to a sore on his buttocks. No abd. pain or cramping. Sore throat. Intermittent cough, "but nothing out of the ordinary." No pain with urination. Medications: Acetaminophen (Tylenol Tab*) 650 mg PO Q4H PRN PRN Reason: MILD PAIN or TEMP > 100.4 Cefepime HCl (Maxipime 2 Gm In Dextrose Duplex (*)) 2 gm in 50 mls @ 100 mls/ hr IV Q12H [facility] Last Admin: 01/12/19 09:05 Dose: 100 mls/hr Sodium Chloride (Ns 0.9% 1000 Ml) 1,000 mls @ 100 mls/hr IV PER RATE [facility] Last Admin: 01/12/19 01:37 Dose: 100 mls/hr Lorazepam (Ativan Tab(*)) 0.5 mg PO BID [facility] Last Admin: 01/12/19 09:04 Dose: 0.5 mg Miscellaneous (Ativan Pyxis Bland) 1 ea N/A .ATIVAN IV BLAND PRN PRN Reason: PYXIS BLAND Objective: [] Vital Signs Temp Pulse Resp BP Pulse Ox 98.9 F 87 20 102/57 98 01/12/19 07:00 01/12/19 07:00 01/12/19 09:04 01/12/19 07:00 01/12/19 07:00 A&Ox3, EOMI, neuro grossly non-focal [place], no obvious deformities or weakness HRR, S1S2, no murmur noted LS clear throughout +BS, abd. soft and non-tender Buttocks with small open area above anus, appears excoriated, pink Laboratory Results - last 24 hr 01/11/19 01/11/19 01/11/19 18:32 18:56 18:56 WBC 0.6 L RBC 3.58 L Hgb 10.8 L Hct 30 L MCV 85 MCH 30 MCHC 36 RDW 13 Plt Count 34 L MPV 7.7 Neut % (Auto) 8.3 Lymph % (Auto) 58.7 [place] % (Auto) 30.3 Eos % (Auto) 0.7 Baso % (Auto) 2.0 Absolute Neuts (auto) 0.1 L* Absolute Lymphs (auto) 0.4 L Absolute Monos (auto) 0.2 Absolute Eos (auto) 0.0 Absolute Basos (auto) 0.0 Absolute Nucleated RBC 0.0 Nucleated RBC % 0.0 Sodium 137 Potassium 3.5 Chloride 103 Carbon Dioxide 26 Anion Gap 8 BUN 17 Creatinine 1.08 Est GFR ( Amer) 92.1 Est GFR (Non-Af Amer) 76.1 BUN/Creatinine Ratio 15.7 Glucose 92 Lactic Acid Calcium 9.0 Total Bilirubin 0.60 AST 19 ALT 34 Alkaline Phosphatase 84 C-Reactive Protein 82.47 H Total Protein 6.8 Albumin 3.9 Globulin 2.9 Albumin/Globulin Ratio 1.3 Urine Color Urine Appearance Urine pH Ur Specific [place] Urine Protein Urine Ketones Urine Blood Urine Nitrate Urine Bilirubin Urine Urobilinogen Ur Leukocyte Esterase Urine WBC (Auto) Urine RBC (Auto) Urine Bacteria Urine Glucose Group A Strep Rapid Negative 01/11/19 01/12/19 01/12/19 18:56 00:34 05:20 WBC RBC Hgb Hct MCV MCH MCHC RDW Plt Count MPV Neut % (Auto) Lymph % (Auto) [place] % (Auto) Eos % (Auto) Baso % (Auto) Absolute Neuts (auto) Absolute Lymphs (auto) Absolute Monos (auto) Absolute Eos (auto) Absolute Basos (auto) Absolute Nucleated RBC Nucleated RBC % Sodium 138 Potassium 3.3 L Chloride 109 Carbon Dioxide 22 Anion Gap 7 BUN 16 Creatinine 0.95 Est GFR ( Amer) 106.8 Est GFR (Non-Af Amer) 88.3 BUN/Creatinine Ratio 16.8 Glucose 89 Lactic Acid 0.9 Calcium 8.0 L Total Bilirubin AST ALT Alkaline Phosphatase C-Reactive Protein Total Protein Albumin Globulin Albumin/Globulin Ratio Urine Color Yellow Urine Appearance Cloudy Urine pH 5.0 Ur Specific [place] 1.019 Urine Protein 1+(30 mg/dl) A Urine Ketones 1+ A Urine Blood 2+ A Urine Nitrate Negative Urine Bilirubin Negative Urine Urobilinogen Negative Ur Leukocyte Esterase Negative Urine WBC (Auto) 1+(6-10/hpf) A Urine RBC (Auto) 2+(6-10/hpf) A Urine Bacteria Absent Urine Glucose Negative Group A Strep Rapid 01/12/19 05:20 WBC 0.8 L RBC 3.12 L Hgb 9.4 L Hct 27 L MCV 86 MCH 30 MCHC 35 RDW 13 Plt Count 28 L MPV 7.7 Neut % (Auto) 4.7 Lymph % (Auto) 58.2 [place] % (Auto) 36.2 Eos % (Auto) 0.2 Baso % (Auto) 0.7 Absolute Neuts (auto) 0.0 L* Absolute Lymphs (auto) 0.5 L Absolute Monos (auto) 0.3 Absolute Eos (auto) 0.0 Absolute Basos (auto) 0.0 Absolute Nucleated RBC 0.0 Nucleated RBC % 0.3 Sodium Potassium Chloride Carbon Dioxide Anion Gap BUN Creatinine Est GFR ( Amer) Est GFR (Non-Af Amer) BUN/Creatinine Ratio Glucose Lactic Acid Calcium Total Bilirubin AST ALT Alkaline Phosphatase C-Reactive Protein Total Protein Albumin Globulin Albumin/Globulin Ratio Urine Color Urine Appearance Urine pH Ur Specific [place] Urine Protein Urine Ketones Urine Blood Urine Nitrate Urine Bilirubin Urine Urobilinogen Ur Leukocyte Esterase Urine WBC (Auto) Urine RBC (Auto) Urine Bacteria Urine Glucose Group A Strep Rapid Assessment: []38 yo male currently completing BEP chemotherapy for local recurrence of testicular cancer admitted with febrile neutropenia, cultures pending. Plan: []1. Febrile Neutropenia: - no renal impairment, increase IV Cefepime to 2gm q8hrs - tmax 100.9 01/11 @ 2100, no need for vanco at this time 2. Pancytopenia secondary to chemotherapy: expect recovery over next 2 weeks - neutropenic precautions - bleeding precautions, transfuse plt. <10K or active bleeding - anemia, s/p 1 unit 01/09, tranfuse hmg <8 or symptomatic 3. Hypokalemia and hypomagnesemia: wasting 2/2 cisplatin - replace with IV and monitor labs 4. Testicular cancer: - C3D15 BEP, we will hold all further chemo Dispo: requires inpt. care until cultures cleared and improvement in counts
[2019-01-12 09:46] LABS: Magnesium 1.4 mg/dL (1.9-2.7)
[2019-01-12] MEDS ORDERED: Magnesium Sulf 4 GM/100 ML IV* 4,000 MG/100 ML BAG IVPB ONE (10:17)
[2019-01-12] MEDS ORDERED: Loperamide CAP* 2 MG PO PRN (11:42)
[2019-01-12] MEDS: KCL 20 MEQ/100 ML IVPREMIX* 20 MEQ/100 ML BAG IV SCH ×2 (14:24→16:44)
[2019-01-12] MEDS: Magic Mouth Was-BEN/MAAL/LIDO SWISH SWAL SCH ×3 (14:25→21:25)
[2019-01-12] MEDS: Ondansetron INJ* 2 MG/ML VIAL IV PRN (21:38)
[2019-01-13 05:29] LABS: ABS Lymphocytes 0.7 10^3/ul (1.0-4.8); ABS Monocytes 0.6 10^3/ul (0-0.8); Eosinophil % 0.6 %; Hematocrit 27 % (42-52); Hemoglobin 9.7 g/dL (14.0-18.0); Lymphocyte % 48.6 %; Mean Corpuscular HGB Conc 36 g/dL (31-36); Mean Corpuscular Hemoglobin 31 pg (27-31); Mean Corpuscular Volume 86 fL (80-94); Mean Platelet Volume 7.6 fL (7.4-10.4); Nucleated Red Blood Cells % 0.2; Platelet Count 39 10^3/uL (150-450); Red Blood Count 3.18 10^6 /uL (4.18-5.48); Red Cell Distribution Width 13 % (10-15); White Blood Count 1.4 10^3/uL (3.5-10.8)
[2019-01-13 05:44] LABS: Albumin 3.3 g/dL (3.2-5.2); Albumin/Globulin Ratio 1.3 (1-3); Calcium 8.7 mg/dL (8.6-10.3); EGFR African American 100.7 (>60); EGFR Non-African American 83.2 (>60); Globulin 2.6 g/dL (2-4); Magnesium 1.9 mg/dL (1.9-2.7); Potassium 3.6 mmol/L (3.5-5.0); Total Bilirubin 0.5 mg/dL (0.2-1.0); Total Protein 5.9 g/dL (6.4-8.9)
[2019-01-13 05:52] LABS: ABS Neutrophils 0.2 10^3/ul (1.5-7.7)
[2019-01-13] MEDS: Ondansetron INJ* 2 MG/ML VIAL IV PRN ×3 (09:20→21:24)
[2019-01-13] MEDS: LORazepam TAB(*) 0.5 MG PO SCH ×2 (09:21→21:13)
[2019-01-13] MEDS: Magic Mouth Was-BEN/MAAL/LIDO SWISH SWAL SCH ×4 (09:21→21:14)
[2019-01-13] MEDS: NS 0.9% 1000 ML** 1,000 ML IV SCH ×2 (10:00→21:24)
[2019-01-13] MEDS: Cefepime(*) 2 GM in NS 0.9% 50 ML* 50 ML IVPB SCH (12:38)
[2019-01-13] MEDS: guaiFENesin ER TAB 600 MG PO SCH ×2 (12:38→21:13)
[2019-01-13] MEDS: Cefepime 2 GM in Dextrose(*) 2 GM/50 ML BAG IV SCH (14:07)
[2019-01-14] MEDS: Cefepime(*) 2 GM in NS 0.9% 50 ML* 50 ML IVPB SCH (00:39)
[2019-01-14 05:38] LABS: Hematocrit 26 % (42-52); Hemoglobin 9.2 g/dL (14.0-18.0); Mean Corpuscular HGB Conc 36 g/dL (31-36); Mean Corpuscular Hemoglobin 31 pg (27-31); Mean Corpuscular Volume 85 fL (80-94); Mean Platelet Volume 7.6 fL (7.4-10.4); Platelet Count 47 10^3/uL (150-450); Red Cell Distribution Width 13 % (10-15)
[2019-01-14 06:16] LABS: Eosinophil % 0.9 %; Lymphocyte % 28.8 %; Nucleated Red Blood Cells % 0.1
[2019-01-14] MEDS: Magic Mouth Was-BEN/MAAL/LIDO SWISH SWAL SCH ×4 (08:34→19:56)
[2019-01-14] MEDS: guaiFENesin ER TAB 600 MG PO SCH ×2 (08:35→19:56)
[2019-01-14] MEDS: LORazepam TAB(*) 0.5 MG PO SCH ×2 (08:35→19:56)
[2019-01-14] MEDS: NS 0.9% 1000 ML** 1,000 ML IV SCH ×2 (08:43→19:11)
[2019-01-14] MEDS ORDERED: Scopolamine 1.5 mg* PATCH TRANSDERM SCH (11:00)
--- NOTE | 2019-01-14 11:06 | PN ---
Progress Note - Progress Note Date of Service: 01/14/19 SOAP: Subjective: [Not feeling well. Coughing freq and vomiting each time he tries to eat.] Objective: [ Vital Signs: Temp Pulse Resp BP Pulse Ox 97.9 F 83 16 131/85 96 01/14/19 07:16 01/14/19 07:16 01/14/19 08:35 01/14/19 07:16 01/14/19 07:16 Acetaminophen (Tylenol Tab*) 650 mg PO Q4H PRN PRN Reason: MILD PAIN or TEMP > 100.4 Guaifenesin (Mucinex*) 600 mg PO BID [facility] Last Admin: 01/14/19 08:35 Dose: 600 mg Guaifenesin/Codeine Phosphate (Robitussin Ac 100mg-10mg*) 5 ml PO Q4H PRN PRN Reason: COUGH Sodium Chloride (Ns 0.9% 1000 Ml) 1,000 mls @ 100 mls/hr IV PER RATE [facility] Last Admin: 01/14/19 08:43 Dose: 100 mls/hr Cefepime HCl (Maxipime 2 Gm In Dextrose Duplex (*)) 2 gm in 50 mls @ 100 mls/ hr IV Q12H [facility] Loperamide HCl (Imodium Cap*) 2 mg PO .SEE DIRECTIONS PRN PRN Reason: DIARRHEA Last Admin: 01/12/19 14:25 Dose: 2 mg Lorazepam (Ativan Tab(*)) 0.5 mg PO BID [facility] Last Admin: 01/14/19 08:35 Dose: 0.5 mg Miscellaneous (Ativan Pyxis Bland) 1 ea N/A .ATIVAN IV BLAND PRN PRN Reason: PYXIS BLAND Multi-Ingredient Mouthwash/Gargle (Magic Mouth Was-Nii/Maal/Lido*) 10 ml SWISH SWAL QID [facility] Last Admin: 01/14/19 08:34 Dose: 10 ml Ondansetron HCl (Zofran Inj*) 4 mg IV Q4H PRN PRN Reason: NAUSEA Last Admin: 01/13/19 21:24 Dose: 4 mg Pantoprazole Sodium (Protonix Iv*) 40 mg IV DAILY [facility] Prednisone (Deltasone Tab*) 40 mg PO DAILY [facility] Scopolamine (Transderm-Scop 1.5 Mg Patch*) 1 patch TRANSDERM Q72H [facility] Laboratory Results - last 24 hr 01/14/19 05:20 WBC 2.0 L RBC 3.00 L Hgb 9.2 L Hct 26 L MCV 85 MCH 31 MCHC 36 RDW 13 Plt Count 47 L MPV 7.6 Neut % (Auto) 31.9 Lymph % (Auto) 28.8 [place] % (Auto) 38.0 Eos % (Auto) 0.9 Baso % (Auto) 0.4 Absolute Neuts (auto) Licensed Electrician Absolute Lymphs (auto) Licensed Electrician Absolute Monos (auto) Licensed Electrician Absolute Eos (auto) Licensed Electrician Absolute Basos (auto) Licensed Electrician Absolute Nucleated RBC Licensed Electrician Immature Gran % 12.0 H Neutrophils % 22.0 Band Neutrophils % 4.0 Lymphocytes % 44.0 Monocytes % 20.0 Eosinophils % 2.0 Metamyelocytes % 5.0 H Myelocytes % 3.0 H Nucleated RBC % 0.1 Abs Neuts (Manual) 0.6 L* Abs Lymphs (Manual) 0.4 L Abs Monocytes (Manual) 0.4 Absolute Eos (Manual) 0.0 Normal RBC Morphology Normal Exam: Gen: Ill appearing 38 yo male in NAD HEENT: MMM CV: RRR, no m/r/g Resp: Freq cough, few rhonchi Abd: soft, nonTTP Ext: No edema] Assessment: [This is a 38 yo male with recurrent testicular CA s/p 8 of 9 weeks of BEP therapy admitted with neutropenic fever. He is feeling very poorly with a persistent cough and freq vomiting. ] Plan: [1. Neutropenic fever - no obvious source, afebrile for several days now - cont Cefepime until ANC >1000 2. Vomiting - likely some gastritis contributing to his persistent symptoms - start IV PPI 3. Cough - start prednisone and prn Robitussin AC 4. Testicular CA - completed chemotherapy Dispo: dc home when ANC >1000]
[2019-01-14] MEDS: Cefepime 2 GM in Dextrose(*) 2 GM/50 ML BAG IV SCH ×2 (12:24→22:22)
[2019-01-14] MEDS: predniSONE TAB* 20 MG PO SCH (12:28)
[2019-01-14] MEDS: Pantoprazole IV* 40 MG IV SCH (12:28)
[2019-01-14] MEDS: guaiFENesin/CODIEN 100MG-10MG* 5 ML UDC PO PRN ×2 (15:12→19:56)
[2019-01-15 06:48] LABS: Albumin 3.1 g/dL (3.2-5.2); Albumin/Globulin Ratio 1.4 (1-3); BUN/Creatinine Ratio 12.3 (8-20); Calcium 8.1 mg/dL (8.6-10.3); EGFR African American 128.4 (>60); EGFR Non-African American 106.1 (>60); Globulin 2.2 g/dL (2-4); Magnesium 1.3 mg/dL (1.9-2.7); Potassium 3.4 mmol/L (3.5-5.0); Total Bilirubin 0.4 mg/dL (0.2-1.0); Total Protein 5.3 g/dL (6.4-8.9)
[2019-01-15 06:49] LABS: Hematocrit 25 % (42-52); Hemoglobin 9.3 g/dL (14.0-18.0); Mean Corpuscular HGB Conc 38 g/dL (31-36); Mean Corpuscular Hemoglobin 31 pg (27-31); Mean Corpuscular Volume 83 fL (80-94); Mean Platelet Volume 7.9 fL (7.4-10.4); Platelet Count 67 10^3/uL (150-450); Red Blood Count 2.98 10^6 /uL (4.18-5.48); Red Cell Distribution Width 13 % (10-15); White Blood Count 3.6 10^3/uL (3.5-10.8)
[2019-01-15 07:42] LABS: ABS Lymphocytes 0.8 10^3/ul (1.0-4.8); Eosinophil % 0.2 %; Lymphocyte % 19.8 %; Nucleated Red Blood Cells % 0.2
[2019-01-15 07:48] LABS: Polychromasia 1+
[2019-01-15] MEDS: Magic Mouth Was-BEN/MAAL/LIDO SWISH SWAL SCH ×2 (08:15→12:05)
[2019-01-15] MEDS: Pantoprazole IV* 40 MG IV SCH (08:15)
[2019-01-15] MEDS: predniSONE TAB* 20 MG PO SCH (08:15)
[2019-01-15] MEDS: LORazepam TAB(*) 0.5 MG PO SCH (08:15)
[2019-01-15] MEDS: guaiFENesin ER TAB 600 MG PO SCH (08:15)
[2019-01-15] MEDS: guaiFENesin/CODIEN 100MG-10MG* 5 ML UDC PO PRN ×2 (08:20→15:04)
[2019-01-15] MEDS ORDERED: Magnesium Sulf 4 GM/100 ML IV* 4,000 MG/100 ML BAG IVPB ONE (09:14)
[2019-01-15] MEDS: KCL 10 MEQ/50 ML IVPREMIX* 10 MEQ/50 ML BAG IV SCH ×2 (09:41→10:53)
--- NOTE | 2019-01-15 11:53 | DS ---
DISCHARGE SUMMARY: DATE OF ADMISSION: 01/12/19 DATE OF DISCHARGE: 01/15/19 PRIMARY ONCOLOGIST AND ATTENDING PHYSICIAN: Dr. Brian Grey.* (DICTATED BY ALESSANDRA WEBBER) DISCHARGING PROVIDER: ALESSANDRA Webber PRIMARY DISCHARGE DIAGNOSES: 1. Neutropenic fever with negative cultures. 2. Intractable nausea and vomiting, likely secondary to gastritis. 3. Intractable cough without evidence for an infectious etiology. 4. Recurrent testicular cancer, status post completion of 8/9 planned weeks of BEP chemotherapy. DISCHARGE MEDICATIONS: 1. Lorazepam 0.5 mg p.o. twice daily. 2. Guaifenesin with codeine 100/10 mg 10 mL p.o. q.4 hours as needed for cough. 3. Omeprazole 40 mg p.o. daily x14 days. 4. Prednisone 40 mg x3 days, followed by 20 mg x3 days, followed by 10 mg x3 days. 5. Scopolamine patch 1 patch applied transdermally every 72 hours for the next 6 days. HOSPITAL IMAGING: Chest x-ray shows no acute disease. HOSPITAL COURSE: This is a 38-year-old gentleman with recurrent testicular cancer, receiving chemotherapy under the care of Dr. Brian Grey, who completed 8/9 planned weeks of BEP chemotherapy. The patient contacted the Oncology Service with complaint of fever and several days of intractable nausea and vomiting. He was subsequently directed to the emergency department for further evaluation. He was initially afebrile when he reached to ER, but shortly thereafter spiked the temperature to 100.9 degrees Fahrenheit. He was neutropenic with a neutrophil counts of 100 and was subsequently admitted to the hospital for neutropenic fever. Blood cultures were collected, initially reported as negative but on day #3 grew gram-positive cocci identified as Micrococcus luteus, which is determined to be a contaminant. The patient had 1 additional elevated temperature of 100.2 degrees Fahrenheit approximately 24 hours following hospitalization and none since that time. Urine culture demonstrated no growth and chest x-ray showed no acute infiltrate. During the patient's hospitalization, he was very nauseous and vomited each time he tried to take anything in by mouth. He had diarrhea that was eventually controlled with Imodium. His stool studies were negative for any infectious etiology. He received cefepime throughout his hospitalization and will be discharged home without any additional antibiotics. DISPOSITION AND FOLLOWUP PLAN: The patient is being discharged to home in stable condition where he lives with his . He has been prescribed PPI for the next 2 weeks to treat presumed gastritis as a result of frequent emesis as well as relatively short course of prednisone to help palliate his persistent cough in addition to codeine cough suppressant. The patient will be seen in the Oncology Clinic with Dr. Grey on 01/26/19 and is instructed to call the Oncology Clinic with any additional concerns that develop prior to that appointment. He has no plan for additional chemotherapy as he completed the majority of his planned course. ALESSANDRA WEBBER [id number]/[facility] #: [id number] ANA M
[2019-01-15] MEDS: Cefepime 2 GM in Dextrose(*) 2 GM/50 ML BAG IV SCH (12:03)
[2019-01-15 15:42] VITALS: BP 128/72
== END 2019-01-15 15:50 | disposition home or self-care (01) | DRG 660 ==
LOC: ED 17:27 → MED 01-12 00:15
PROVIDERS: ADMIT Internal Medicine; ATTEND Internal Medicine Hematology & Oncology
DX: D70.9 Neutropenia, unspecified (principal); C77.4 Secondary and unspecified malignant neoplasm of inguinal and lower limb lymph nodes; C62.90 Malignant neoplasm of unspecified testis, unspecified whether descended or undescended; R50.81 Fever presenting with conditions classified elsewhere; K29.70 Gastritis, unspecified, without bleeding; R05 Cough; F41.9 Anxiety disorder, unspecified; E87.6 Hypokalemia; E83.42 Hypomagnesemia
CPT/HCPCS: 36415; 71046; 80048; 80053; 81003; 81015; 83605; 83735; 85025; 85060; 86140; 87040; 87045; 87046; 87077; 87086; 87150; 87205; 87651; 87899; 99232; 99233; 99239; 99284; A9270-GY; J0692; J1642; J2060; J2405; J2765; J3370; J3475; J3480; J7512

== ENCOUNTER 2019-05-07 10:21 | Observation (INO) | payer OTHER ==
--- OUTSIDE RECORDS SUMMARY | 2019-05-07 10:34 | XMS REPORT | Continuity of Care Document ---
:1980 External Reference #:[id number] Author Name Ari Grover MD (transmitted by agent of provider Holli Jarvis) Address [address], [address] [place] [address] Care Team Providers Name Role Phone Brian Grey M.D. - Hematology & Care Team Information Billing Checker Oncology Problems Description No Information Available Social History Type Date Description Comments Sex Unknown Tobacco Use Start: Unknown End: Patient is a former smoker 2014 Unknown Smoking Status Reviewed: 03/12/19 Patient is a former smoker 2014 Exercise Type/Frequency Does not exercise Allergies, Adverse Reactions, Alerts Active Allergies Reaction Severity Comments Date Raspberry Juice hives 11/07/2018 Inactive Allergies NKDA 11/06/2018 Medications Active Medications SIG Qnty Indications Ordering Provider Date Fluticasone Propionate 1 twice a day 48gm R0Regina Grover MD 03/12/2019 50mcg/Act Suspension Ventolin HFA 2 every 4 hours 18gm R0Regina Grover MD 03/12/2019 108(90Base) as needed mcg/Act Aerosol Esomeprazole Magnesium 1 tablet by 30caps R0Regina Grover MD 03/12/2019 mouth daily 20mg Capsules DR History Medications No Active Medications Unknown 11/10/2018 - 03/12/2019 Immunizations Description No Information Available Vital Signs Date Vital Result Comment 03/12/2019 10:10am Height 67.25 inches 5'7.25" Weight 237.00 lb Heart Rate 78 /min BP Systolic Sitting 116 mmHg Lue large cuff BP Diastolic Sitting 80 mmHg Lue large cuff Respiratory Rate 12 /min O2 % BldC Oximetry 98 % BMI (Body Mass Index) 36.8 kg/m2 Neck Circumference in inches 19 11/10/2018 11:46am Height 67.25 inches 5'7.25" Weight 262.00 lb Heart Rate 90 /min BP Systolic Sitting 150 mmHg BP Diastolic Sitting 84 mmHg Respiratory Rate 18 /min Body Temperature 97.7 F BMI (Body Mass Index) 40.7 kg/m2 Procedures Date Code Description Status 03/03/2019 44087 Diffusing Capacity Completed 03/03/2019 85909 Spirometry Incl Graphic Record Completed 01/09/2019 70972 Diffusing Capacity Completed 01/09/2019 39306 Spirometry Incl Graphic Record Completed 11/13/2018 54752 Diffusing Capacity Completed 11/13/2018 64782 Spirometry Incl Graphic Record Completed 11/12/2018 90049 Fluoroscopic Guidance For Cent Completed 11/12/2018 60766 Insertion Tunneled Cent Venous Cathr W Subcut Port 5 Yrs Completed Or [facility] [employer] Description No Information Available Encounters Type Date Location Provider Dx Diagnosis Office Visit 01/12/2019 [facility] Alise Louis, D70.9 Neutropenia, 9:22a Assocnader M.D. unspecified Hospitalists R50.9 Fever, unspecified Office Visit 11/10/2018 11:30a Surgical Dajuan Bahena C62.90 [facility] Klein MD, unsp testis, unsp FACS descended or undescended Z85.47 Personal history of malignant neoplasm of testis Assessments Date Code Description Provider 03/12/2019 R91.8 Other nonspecific abnormal finding of lung Ari Grover MD field 03/12/2019 R05 Cough Ari Grover MD 03/12/2019 G47.30 Sleep apnea, unspecified Ari Grover MD 03/03/2019 R06.02 Shortness of breath Sarah Ortiz MD 01/12/2019 D70.9 Neutropenia, unspecified Alise Louis M.D. 01/12/2019 R50.9 Fever, unspecified Alise Louis M.D. 01/09/2019 R06.02 Shortness of breath Sarah Ortiz MD 11/13/2018 Z13.83 Encounter for screening for respiratory Sarah Ortiz MD disorder NEC 11/12/2018 C62.90 Malignant neoplasm of unspecified testis, Dajuan Klein MD, FACS unspecified whethe 11/10/2018 C62.90 Malignant neoplasm of unspecified testis, Dajuan Klein MD, FACS unspecified whethe 11/10/2018 Z85.47 Personal history of malignant neoplasm of Dajuan Klein MD, FACS testis Plan of Treatment 03/12/2019 - Ari Grover, MDR91.8 Other nonspecific abnormal finding of lung fieldNew Xrays:CT Chest W, Ordered: 03/12/19Comments:I would repeat the CT scan in 3 months. If the lung nodule is any bigger B would proceed straight to biopsy.Follow up:Patient is instructed to follow-up with me after CT chest in May 2019.R05 CoughNew Medication:Fluticasone Propionate 50 mcg/Act - 1 twice a dayVentolin HFA 108(90 Base) mcg/Act - 2 every 4 hours as neededEsomeprazole Magnesium 20 mg - 1 tablet by mouth dailyComments:We will treat the patient with Flonase nasal Protonix for reflux and albuterol when necessary.G47.30 Sleep apnea, unspecifiedNew Orders:Sleep Study, Ordered: Comments:We will proceed with sleep study. Functional Status Description No Information Available Mental Status Description No Information Available Referrals Description No Information Available
--- NOTE | 2019-05-07 10:35 | ED ---
Shortness of Breath - HPI Summary HPI Summary: This patient is a 39 year old M with a history of testicular cancer diagnosed last year and lung nodules presenting to ED with a chief complaint of shortness of breath since two days ago. Patient had a testicle removed last year, however the cancer returned to the patients lymph nodes. He was on chemotherapy this January 2019. Patient has developed SOB since two days ago, but he denies palpitations, chest pain, and edema. The patient rates the pain 0/10 in severity. Symptoms aggravated by nothing. Symptoms alleviated by nothing. Patient reports mild anxiety. - History of Current Complaint Chief Complaint: EDShortnessOfBreath Time Seen by Provider: 05/07/19 10:26 Hx Obtained From: Patient, Family/Ship'S Officer - Onset/Duration: Gradual Onset, Lasting Days - Since 2 days ago, Still Present, Worse Since Timing: Constant Current Severity: Mild Dyspnea At: Rest Aggravating Factors: Nothing Alleviating Factors: Nothing Associated Signs & Symptoms: Negative - Palpitations, chest pain, edema - Allergy/Home Medications Allergies/Adverse Reactions: Allergies Allergy/AdvReac Type Severity Reaction Status Date / Time raspberry Allergy Mild Hives Verified 05/07/19 10:42 Home Medications: Home Medications Albuterol HFA INHALER* [Ventolin HFA Inhaler*] 2 puff INH Q4H PRN 05/07/19 [ History Confirmed 05/07/19] Fluticasone NASAL SPRAY 50MCG* [Flonase NASAL SPRAY 50MCG*] 2 spray BOTH NARES DAILY 05/07/19 [History Confirmed 05/07/19] PMH/Surg Hx/FS Hx/Imm Hx Endocrine/Hematology History: Denies: Hx Diabetes, Hx Thyroid Disease Cardiovascular History: Reports: Hx Hypertension Denies: Hx Pacemaker/ICD Respiratory History: Denies: Hx Asthma, Hx Chronic Obstructive Pulmonary Disease (COPD) GI History: Denies: Hx Ulcer History: Reports: Other Problems/Disorders - right testicular mass Denies: Hx Dialysis, Hx Renal Disease Musculoskeletal History: Reports: Hx Arthritis - POSSIBLY IN HANDS Sensory History: Denies: Hx Contacts or Glasses, Hx Eye Prosthesis, Hx Legally Blind, Hx Deafness, Hx Hearing Aid Opthamlomology History: Denies: Hx Contacts or Glasses, Hx Eye Prosthesis, Hx Legally Blind Neurological History: Denies: Hx Developmental Delay Psychiatric History: Denies: Hx Anxiety, Hx Depression, Hx Panic Disorder - Cancer History Cancer Type, Location and Year: testicular - Surgical History Surgery Procedure, Year, and Place: right testicle,[place] Hx Anesthesia Reactions: No - never had surgery Infectious Disease History: No Infectious Disease History: Reports: Hx Shingles - x2 Denies: Hx Clostridium Difficile, Hx Hepatitis, Hx Human Immunodeficiency Virus (HIV), Hx of Known/Suspected MRSA, History Other Infectious Disease, Traveled Outside the [place] in Last 30 Days - Family History Known Family History: Positive: Hypertension, Diabetes, Other - Cancer, Denies FHx of GI problems Family History: pt was adopted but knows there is heart disease and dm in his biological family - Social History Alcohol Use: None Alcohol Amount: recovering alcoholic Hx Substance Use: No Substance Use Type: Reports: None Substance Use 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 (-) Distressed Skin: Warm, Dry HENT: Normocephalic; Atraumatic Eyes: Conjunctiva normal Neck: Musculoskeletal ROM normal neck. (-) JVD, (-) Stridor, (-) Tracheal deviation Cardio: Tacyhcardic, heart rate is fluctuating between the 90s and 110s. Normal S1 and S2; Intact distal pulses; The pedal pulses are 2+ and symmetric. Radial pulses are 2+ and symmetric. Pulmonary/Chest wall: Lungs are clear. Some labored breathing. (-) Respiratory distress, (-) Wheezes, (-) Rales Abd: Protuberant from obesity, (-) Tenderness, (-) Distension, (-) Guarding, (- ) Rebound Musculoskeletal: (-) Edema Neuro: Alert, Oriented x3 Psych: Mood and affect Normal Triage Information Reviewed: Yes Vital Signs On Initial Exam: Initial Vitals Temp Pulse Resp BP Pulse Ox 97.7 F 96 22 152/99 99 05/07/19 10:21 05/07/19 10:21 05/07/19 10:21 05/07/19 10:21 05/07/19 10:21 Vital Signs Reviewed: Yes Procedures - Sedation Patient Received Moderate/Deep Sedation with Procedure: No Diagnostics - Vital Signs Vital Signs Temp Pulse Resp BP Pulse Ox 05/07/19 10:21 97.7 F 96 22 152/99 99 - Laboratory Result Diagrams: 05/07/19 11:05 05/07/19 11:05 Lab Statement: Any lab studies that have been ordered have been reviewed, and results considered in the medical decision making process. - CT Chest/thorax CT Interpretation Completed By: Radiologist Summary of CT Findings: #. The constellation of findings given the clinical context is consistent with small burden of acute pulmonary embolism with associated pulmonary infarcts or ischemia at the posterior lateral basal segments of the RIGHT lower lobe. #. Interval resolution of previously noted RIGHT upper lobe and RIGHT middle lobe subcentimeter pulmonary nodules. Dr. Barclay has reviewed this radiology report. - EKG 1057 Cardiac Rate: NL - 85 BPM EKG Rhythm: Sinus Rhythm EKG Comparison: Other - No prior Summary of EKG Findings: An EKG at 1057 revealed NSR at 85 BPM, T-wave inversion in III, T-wave flattening in aVF, no STEMI, no prior. Dr. Barclay, has reviewed and interpreted this EKG. Re-Evaluation - Re-Evaluation First Eval Re-Evaluation Time: 12:50 Comment: Discussed results with patient. Patient will be admitted to [facility] with dx of pulmonary embolism. Patient understands and agrees with this plan. Course/Dx - Course Course Of Treatment: This patient is a 39 year old M with a history of testicular cancer diagnosed last year and lung nodules presenting to ED with a chief complaint of shortness of breath since two days ago. An EKG at 1057 revealed NSR at 85 BPM, T-wave inversion in III, T-wave flattening in aVF, no STEMI, no prior. VBG revealed O2 saturation 46.6. Blood work revealed Hgb 13.8, Hct 40, MCV 95, MCH 33, MPV 6.8, creatinine 1.18. Chest/thorax CTA revealed: #. The constellation of findings given the clinical context is consistent with small burden of acute pulmonary embolism with associated pulmonary infarcts or ischemia at the posterior lateral basal segments of the RIGHT lower lobe. #. Interval resolution of previously noted RIGHT upper lobe and RIGHT middle lobe subcentimeter pulmonary nodules. Thus, I gave the patient lovenox. At 1251, discussed patient case with Dr. Portillo, oncologist, who said that the patient can be admitted to medicine, not the oncology services. At 1252, discussed patient case with Dr. Conti, hospitalist, who accepted the patient for admission to [facility]. Patient will be admitted to [facility] with dx of pulmonary embolism. Patient understands and agrees with this plan. - Diagnoses Provider Diagnoses: Pulmonary embolism - Physician Notifications Discussed Care of Patient With: Crow Carrillo Time Discussed With Above Provider: 12:30 Instructed by Provider To: Other - Discussed patient case with Dr. Carrillo, radiologist, who reports wedge shaped infarcts in the right lower lobe, indicative of PE on the patient's chest/thorax CTA. At 1251, discussed patient case with Dr. Portillo, oncologist, who said that the patient can be admitted to medicine, not the oncology services. At 1252, discussed patient case with Dr. Conti, hospitalist, who accepted the patient for admission to [facility]. Discharge ED - Sign-Out/Discharge Documenting (check all that apply): Patient Departure - Admit - Discharge Plan Condition: Fair Disposition: ADMITTED TO [facility] - Billing Disposition and Condition Condition: FAIR Disposition: Admitted to [facility] - Attestation Statements Document Initiated by Arabella: Yes Documenting Scribe: Laci Landin Provider For Whom Arabella is Documenting (Include Credential): Kal Barclay MD Scribe Attestation: I, Laci Landin, scribed for Kal Barclay MD on 05/07/19 at 1906. Scribe Documentation Reviewed: Yes Provider Attestation: The documentation as recorded by the Laci morales accurately reflects the service I personally performed and the decisions made by me, Kal Barclay MD Status of Scribe Document: Viewed
[2019-05-07 11:18] LABS: ABS Basophils 0.1 10^3/ul (0-0.2); ABS Eosinophils 0.2 10^3/ul (0-0.6); ABS Lymphocytes 1.5 10^3/ul (1.0-4.8); ABS Monocytes 0.8 10^3/ul (0-0.8); ABS Neutrophils 5.5 10^3/ul (1.5-7.7); Hematocrit 40 % (42-52); Hemoglobin 13.8 g/dL (14.0-18.0); Mean Corpuscular HGB Conc 34 g/dL (31-36); Mean Corpuscular Hemoglobin 33 pg (27-31); Mean Corpuscular Volume 95 fL (80-94); Mean Platelet Volume 6.8 fL (7.4-10.4); Nucleated Red Blood Cells % 0.1; Platelet Count 226 10^3/uL (150-450); Red Blood Count 4.24 10^6 /uL (4.18-5.48); Red Cell Distribution Width 13 % (10-15)
[2019-05-07 11:33] LABS: Activated Partial Thrombo Time 33.9 seconds (26.0-38.0); INR 1.04 (0.82-1.09)
[2019-05-07 11:40] LABS: BUN/Creatinine Ratio 12.7 (8-20); Calcium 9.2 mg/dL (8.6-10.3); EGFR African American 82.7 (>60); EGFR Non-African American 68.4 (>60); Potassium 3.7 mmol/L (3.5-5.0)
[2019-05-07] MEDS ORDERED: Iohexol 350* (CONTRAST) 500 ML MDV IV ONE (12:04)
[2019-05-07] MEDS ORDERED: Enoxaparin(*) 100 MG/ML SYR SUBCUT ONE (12:32)
[2019-05-07] MEDS ORDERED: Albuterol HFA INHALER* 8 gm MDI INH PRN (13:26)
[2019-05-07] MEDS ORDERED: Enoxaparin(*) 150 MG/ML 1 ML SYRINGE SUBCUT ONE (14:00)
--- NOTE | 2019-05-07 15:23 | HP ---
CC: Dr. Grey * HISTORY AND PHYSICAL: DATE OF ADMISSION: 05/07/19 PRIMARY CARE PROVIDER: Dr. Grey. CHIEF COMPLAINT: Shortness of breath. HISTORY OF PRESENT ILLNESS: Mr. Gonzales is a 39-year-old male with a history of metastatic testicular cancer, who presented to the emergency room with complaints of shortness of breath. He states that over the last few days, he has had progressive shortness of breath. He is short of breath at rest and with exertion. Additionally, he does complain of a harsh cough. He does tell me he vomited after a couple of coughing episodes. He has had no fevers or chills. He has had no sputum production. He denies any recent long distance travel. In the emergency room, the patient underwent a CTA of the chest which revealed the pulmonary angiogram to be limited due to suboptimal contrast opacification of the pulmonary arteries; however, a small region of acute pulmonary embolism is visualized involving subsegmental pulmonary arteries at the posterior basal segment of the right lower lobe. Additionally, there are peripheral nodular/wedge shaped consolidation involving the lateral and posterior basal segments of the right lower lobe with air bronchograms. It was felt the constellation of findings given the clinical context is consistent with small burden of acute pulmonary embolism with associated pulmonary infarcts or ischemia at the posterior lateral basal segments of the right lower lobe. PAST MEDICAL HISTORY: Testicular cancer - metastatic to lymph nodes. PAST SURGICAL HISTORY: Testicular resection. MEDICATIONS: 1. Flonase 2 squirts both nostrils daily. 2. Albuterol 2 puffs inhaled q.4 hours p.r.n. shortness of breath. ALLERGIES: Raspberry. FAMILY HISTORY: The patient is adopted. His biologic mom's health is unknown, but she is living. His biologic father from cancer, he does not know what type. SOCIAL HISTORY: The patient is a former smoke, he quit in 2015. He does not drink alcohol or use recreational drugs. He currently is not working after he was needed to be started on chemotherapy. He is . He has 10 living children, 3 children who all either a stillborn or immediately after , and 2 step-children. REVIEW OF SYSTEMS: A complete 11-system review of systems is obtained. Pertinent positives and negatives are as per HPI and otherwise negative. PHYSICAL EXAMINATION GENERAL: The patient is a well-developed middle-aged male seen sitting up in the stretcher, in no acute distress. VITAL SIGNS: Blood pressure 128/86, pulse 86, respirations 26, temp 97.7, O2 sat 99% on room air. HEENT: Pupils are equal. Extraocular muscles are intact. Oropharynx is clear and moist. The patient's dentition is in poor repair. There is no submandibular, cervical, or supraclavicular adenopathy. PULMONARY: Lungs are clear to auscultation bilaterally, though I do appreciate a few crackles at the right lower lobe. CARDIAC: Normal S1, S2. Regular rate and rhythm. I do not appreciate any murmurs. There is no lower extremity edema. ABDOMEN: Bowel sounds are present. Abdomen is soft, nontender, nondistended. MUSCULOSKELETAL: There is no cyanosis or clubbing of the digits. There is full active range of motion of all 4 extremities. NEURO: Cranial nerves II through XII are grossly intact. Sensation is intact to light touch throughout. Strength is 5/5 and symmetric in both upper and lower extremities bilaterally. PSYCH: The patient is alert. He is oriented x3. He has very poor health literacy. SKIN: Visible areas of skin are warm, dry, and without rash. DIAGNOSTIC STUDIES/LAB DATA: Labs: WBC 8.0, hemoglobin 13.8, hematocrit 40, platelets 226. INR 1.04. Sodium 136, potassium 3.7, chloride 103, CO2 of 26, BUN 15, creatinine 1.18, glucose 99, calcium 9.2. Bilirubin 0.0. VBG 7.39/45/ less than 38.0. EKG reveals sinus tachycardia without any acute ST-T wave abnormalities. CTA chest: There is peripheral nodular/wedge shaped consolidation involving the lateral and posterior basal segments of the right lower lobe with air bronchograms. CT pulmonary angiogram is limited due to suboptimal contrast opacification of the pulmonary arteries. There is, however, a small region of acute pulmonary embolism visualized involving subsegmental pulmonary arteries at the posterior basal segment of the right lower lobe. There is interval resolution of previously noted right upper lobe and right middle lobe subcentimeter pulmonary nodules. ASSESSMENT AND PLAN: Mr. Gonzales is a 39-year-old male with a history of metastatic testicular cancer who underwent orchiectomy in 2018 followed by chemotherapy in 2019, who presents to the emergency room with complaints of shortness of breath and is found to have pulmonary emboli. 1. Right lower lobe pulmonary emboli. The patient has received a dose of Lovenox in the emergency room. Reportedly, he is quite symptomatic when he is up and exerting himself. He will be admitted to the telemetry floor on observation. He will undergo a lower extremity Dopplers to rule out DVT and a transthoracic echocardiogram to evaluate for any significant right heart strain. He will be started on Xarelto this evening and continued on this for at least 3 to 6 months; however, given the patient's history, he should discuss with Dr. Grey if this is the appropriate duration of treatment. I suspect the patient will be able to be discharged home tomorrow. 2. DVT prophylaxis: As above, the patient already has a pulmonary embolism and will be placed on Xarelto. 3. The patient is a full code. [id number]/[facility] #: [id number] MTDD
[2019-05-07] MEDS: Rivaroxaban TAB(*) 15 MG PO SCH (22:58)
[2019-05-08 07:46] VITALS: BP 112/63
[2019-05-08] MEDS ORDERED: Perflutren Lipid Microsphere* 3 ML VIAL ONE (08:02)
[2019-05-08] MEDS: Rivaroxaban TAB(*) 15 MG PO SCH (08:47)
--- NOTE | 2019-05-08 09:15 | ECHO ---
*[facility]* [place] [address] Fax #: [phone] Transthoracic Echocardiogram Patient: Armin Gonzales : 1980 Study Date: 05/08/2019 Age: 39 Gender: M HR: 71 bpm Height: 67 in /170.2 cm BSA: 2.18 m^2 Weight: 239.5 lb /108.9 kg BMI: 37.6 kg/m^2 *Referring Physician: * Caryn Conti *Reading Physician: * Dajuan Guajardo MD Indications: SOB. Pulmonary Embolism. History: The patient has metastatic testicular malignancy with lung and lymph node involvement and is status post chemotherapy. Risk factors: Obese. Conclusions Summary: - Left ventricle: The cavity size is normal. Wall thickness is normal. Systolic function is normal. The estimated ejection fraction is 55-60%. Wall motion is normal; there are no regional wall motion abnormalities. - Right ventricle: The cavity size is normal. Systolic function is normal. - Left atrium: The atrium is normal in size. - Tricuspid valve: There is trace regurgitation. - Pulmonary arteries: Systolic pressure can not be accurately estimated. Recommendations: None prior for comparison at time of interpretation Study data: Transthoracic echocardiogram. Procedure: Transthoracic echocardiography was performed. Image quality was suboptimal. The study was technically limited due to body habitus. Intravenous Definity , 4 mlswas administered. Complete 2D, spectral Doppler, and color flow Doppler. Location: Bedside. Patient status: Inpatient. Patient room number: 446-2. Rhythm: Normal sinus rhythm. Findings Left ventricle: The cavity size is normal. Wall thickness is normal. Systolic function is normal. The estimated ejection fraction is 55-60%. Wall motion is normal; there are no regional wall motion abnormalities. There is no consistent Doppler evidence of clinically significant diastolic dysfunction. Right ventricle: The cavity size is normal. Systolic function is normal. Left atrium: The atrium is normal in size. Right atrium: The atrium is normal in size. Mitral valve: The leaflets are normal thickness. There is no evidence of stenosis. There is trace regurgitation. Aortic valve: The valve is trileaflet. The leaflets are normal thickness. There is no evidence of stenosis. There is no significant regurgitation. Tricuspid valve: The leaflets are normal thickness. There is no evidence of stenosis. There is trace regurgitation. Pulmonic valve: The leaflets are normal thickness. There is no evidence of stenosis. There is no significant regurgitation. Aorta: Aortic root: The aortic root is appears normal. Ascending aorta: The ascending aorta is appears normal. Aortic arch: The aortic arch is appears normal. Pericardium: There is no significant pericardial effusion. Pulmonary arteries: Not well visualized. Systolic pressure can not be accurately estimated. Systemic veins: Inferior vena cava: The vessel is normal in size. There is (>= 50%) respiratory change in the IVC dimension. Measurements Left ventricle Value Ref Right atrium continued Value Ref JASON, LAX 5.3 cm 4.2 - 5.8 SI dim, ES, A4C 5.3 cm 3.4 - 5.3 ESD, LAX 3.1 cm 2.5 - 4.0 Estimated RAP 3 mm Hg --------- FS, LAX 41 % 25 - 43 PW, ED, LAX (H) 1.1 cm 0.6 - 1.0 Aortic valve Value Ref FS 41 % 25 - 43 Jose Maria diam, ED 2.5 cm --------- PW, ED (H) 1.1 cm 0.6 - 1.0 Peak v, S 1.3 m/sec --------- E', lat jose maria, TDI (L) 7.2 cm/sec >=10.0 VTI, S 24.0 cm -- ------- E/e', lat jose maria, 9 Mean grad, S 3.0 mm Hg ----- ---- TDI Peak grad, S 6.0 mm Hg --------- E', med jose maria, TDI 12.5 cm/sec >=7.0 LVOT/AV, VTI ratio 0.67 -- ------- E/e', med jose maria, 5 TDI Mitral valve Value Ref E', avg, TDI 9.9 cm/sec Peak E 0.64 m/sec ----- ---- E/e', avg, TDI 6 <=14 Peak A 0.49 m/sec -- ------- Decel time 423 ms --------- LVOT Value Ref Peak E/A ratio 1.3 --------- Peak eliz, S 0.85 m/sec VTI, S 16.0 cm Pulmonic valve Value Ref Mean grad, S 2 mm Hg Peak v, S 1.2 m/sec --------- Peak grad, S 6.0 mm Hg --------- Ventricular septum Value Ref IVS, ED (H) 1.1 cm 0.6 - 1.0 Aortic root Value Ref Root diam 3.3 cm <4.3 Right ventricle Value Ref JASON, LAX 3.8 cm Ascending aorta Value Ref JASON minor ax, (H) 4.0 cm 1.9 - 3.5 AAo AP diam, S 3.0 cm --------- A4C mid Aortic arch Value Ref Left atrium Value Ref Arch diam 2.2 cm --------- AP dim, ES 3.30 cm 3.00 - 4.00 Decending aorta Value Ref ML dim, A4C 4.1 cm Chano peak eliz 1.11 m/sec --------- SI dim, A4C 5.3 cm Vol/bsa, ES, 1-p 25 ml/m^2 12 - 37 Inferior vena cava Value Ref A4C Diam 1.8 cm --------- Vol/bsa, ES, A/L 28 ml/m^2 16 - 34 Right atrium Value Ref SI dim, ES 5.3 cm 3.4 - 5.3 ML dim, ES, A4C (H) 5.0 cm 2.6 - 4.4 Legend: (L) and (H) cecelia values outside specified reference range. Prepared and electronically signed by Dajuan Guajardo MD 05/08/2019 09:15
--- NOTE | 2019-05-08 21:26 | DS ---
CC: Dr. Grey * DISCHARGE SUMMARY: DATE OF ADMISSION: 05/07/19 DATE OF DISCHARGE: 05/08/19 PRIMARY CARE PROVIDER: Dr. Grey. PRINCIPAL DIAGNOSES: 1. Possible right lower lobe pulmonary embolism. 2. Possible right lower lobe pneumonia. SECONDARY DIAGNOSIS: History of metastatic testicular cancer. DISCHARGE MEDICATIONS: 1. Flonase 2 squirts to both nostrils daily. 2. Albuterol 2 puffs inhaled q.4 hours p.r.n. shortness of breath. 3. Xarelto 15 mg p.o. twice daily x20 days, then 20 mg p.o. daily. 4. Augmentin 875 one tab p.o. b.i.d. x7 days. HOSPITAL COURSE: Mr. Gonzales is a 39-year-old male who has a history of metastatic testicular cancer, who presents to the emergency room with complaints of shortness of breath. The patient described a relatively sudden onset of shortness of breath. He was winded with exertion. CT scan was performed to rule out pulmonary embolism. The study was felt to be of poor quality. The patient was however found to have possible wedge-shaped infarcts peripherally along with a possible small burden of pulmonary embolism. Because of this, the patient was started on Xarelto 15 mg p.o. twice daily. He will continue on this for 21 days total followed by Xarelto 20 mg p.o. daily. The patient's insurance required prior authorization. Therefore, he was dispensed 5 days worth of Xarelto from [facility] while the prior authorization was being obtained. Dr. Grey reviewed the patient's images and spoke with me on the morning of discharge. He was suspicious that the patient may in fact have pneumonia and not pulmonary embolism. Because of the concern that these are not wedge-shaped infarcts but in fact infiltrates, the patient was started on Augmentin 875 mg p.o. twice daily x7 days. I have asked the patient to follow up with Dr. Grey in the outpatient setting. He has been instructed to monitor for signs of bleeding. If he is to have gastrointestinal bleeding, he is instructed to present to the emergency room. FOLLOWUP CONCERNS: The patient is being discharged home today, 05/08/19. Activity level is as tolerated. Diet is regular. CONDITION ON DISCHARGE: Stable. The patient is to follow up with Dr. Grey in the next 1 to 2 weeks. TIME SPENT: Twenty-five minutes was spent discharging this patient. [id number]/[facility] #: [id number] ANA M
== END 2019-05-08 15:14 | disposition home or self-care (01) ==
LOC: ED 10:21 → MEDTELE 13:23
PROVIDERS: ADMIT Hospitalist; ATTEND Hospitalist
DX: I26.99 Other pulmonary embolism without acute cor pulmonale (principal); R06.02 Shortness of breath; Z85.47 Personal history of malignant neoplasm of testis; I10 Essential (primary) hypertension; Z87.891 Personal history of nicotine dependence; F41.9 Anxiety disorder, unspecified; Z87.09 Personal history of other diseases of the respiratory system; R94.31 Abnormal electrocardiogram [ECG] [EKG]; E66.9 Obesity, unspecified; Z92.21 Personal history of antineoplastic chemotherapy
CPT/HCPCS: 36415; 71275; 80048; 82803; 84484; 85025; 85610; 85730; 93005; 93306; 93970; 96372; 99284; A9270-GY; C8929; G0378; J1650; Q9967

== ENCOUNTER 2019-06-24 12:03 | Emergency (ER) | payer OTHER ==
--- NOTE | 2019-06-24 12:38 | ED ---
Complex/Multi-Sys Presentation - HPI Summary HPI Summary: The patient is a 39 y/o male presenting to [facility] with a chief complaint of unilateral swelling of the extremities on the right since yesterday. He reports that yesterday he noticed that there was some swelling in the right arm, right leg, and right foot with development of warmth to touch in the right arm. There is no associated pain. He denies any fevers, chills, CP, or SOB. He spoke with Dr. Grey who sees the patient for testicular cancer, warranting recommendation he come to the ED to r/o new blood clots, although he has a known clot in the lungs with Xarelto compliance. He had a power port placed in the right chest in November 2018, and he had swelling in the right arm at the time of placement. He completed chemotherapy in January 2019. PMHx: HTN, schizophrenia. Former smoker, no EtOH, no substance use. Medications reviewed. Allergies noted. - History Of Current Complaint Chief Complaint: EDGeneral Time Seen by Provider: 06/24/19 12:17 Hx Obtained From: Patient Onset/Duration: Lasting Hours - since yesterday, Still Present Timing: Constant Severity Currently: Moderate Severity Initially: Mild Aggravating Factor(s): nothing Alleviating Factor(s): nothing Associated Signs And Symptoms: Positive: Other - swelling of right arm, leg, foot with warmth in arm; Negative: chills, pain. Negative: SOB, Chest Pain, Fever - Allergies/Home Medications Allergies/Adverse Reactions: Allergies Allergy/AdvReac Type Severity Reaction Status Date / Time raspberry Allergy Mild Hives Verified 05/07/19 10:42 PMH/Surg Hx/FS Hx/Imm Hx Endocrine/Hematology History: Reports: Hx Anticoagulant Therapy - Xarelto Denies: Hx Diabetes, Hx Thyroid Disease Cardiovascular History: Reports: Hx Hypertension Denies: Hx Pacemaker/ICD Respiratory History: Denies: Hx Asthma, Hx Chronic Obstructive Pulmonary Disease (COPD) GI History: Denies: Hx Ulcer History: Reports: Other Problems/Disorders - right testicular mass Denies: Hx Dialysis, Hx Renal Disease Musculoskeletal History: Reports: Hx Arthritis - POSSIBLY IN HANDS Sensory History: Denies: Hx Contacts or Glasses, Hx Eye Prosthesis, Hx Legally Blind, Hx Deafness, Hx Hearing Aid Opthamlomology History: Denies: Hx Contacts or Glasses, Hx Eye Prosthesis, Hx Legally Blind Neurological History: Denies: Hx Developmental Delay Psychiatric History: Denies: Hx Anxiety, Hx Depression, Hx Panic Disorder - Cancer History Cancer Type, Location and Year: testicular - Surgical History Surgery Procedure, Year, and Place: right testicle,PORT Hx Anesthesia Reactions: No - never had surgery - Immunization History Date of Influenza Vaccine: 2018 Infectious Disease History: No Infectious Disease History: Reports: Hx Shingles - x2 Denies: Hx Clostridium Difficile, Hx Hepatitis, Hx Human Immunodeficiency Virus (HIV), Hx of Known/Suspected MRSA, History Other Infectious Disease, Traveled Outside the [place] in Last 30 Days - Family History Known Family History: Positive: Hypertension, Diabetes, Other - Cancer, Denies FHx of GI problems Family History: pt was adopted but knows there is heart disease and dm in his biological family - Social History Alcohol Use: None Alcohol Amount: recovering alcoholic Hx Substance Use: No Substance Use Type: Reports: None Substance Use 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 (-) Distressed Skin: Warm, Dry HENT: Normocephalic; Atraumatic Eyes: Conjunctiva normal Neck: Musculoskeletal ROM normal neck. (-) JVD, (-) Stridor, (-) Nuchal rigidity Cardio: Rhythm regular, rate normal, Heart sounds normal; Intact distal pulses; Radial pulses are 2+ and symmetric. (-) Murmur Pulmonary/Chest wall: Port in right chest. Effort normal. (-) Respiratory distress, (-) Wheezes, (-) Rales Abd: Soft, (-) tenderness, (-) Distension, (-) Guarding, (-) Rebound Musculoskeletal: Not pitting but edema of RUE, trace edema of RLE Lymph: (-) Cervical adenopathy Neuro: Alert, Oriented x3 Psych: Mood and affect Normal Triage Information Reviewed: Yes Vital Signs On Initial Exam: Initial Vitals Temp Pulse Resp BP Pulse Ox 98.5 F 94 18 129/81 97 06/24/19 12:05 06/24/19 12:05 06/24/19 12:05 06/24/19 12:05 06/24/19 12:05 Vital Signs Reviewed: Yes Procedures - Sedation Patient Received Moderate/Deep Sedation with Procedure: No Diagnostics - Vital Signs Vital Signs Temp Pulse Resp BP Pulse Ox 06/24/19 12:05 98.5 F 94 18 129/81 97 - Laboratory Lab Statement: Any lab studies that have been ordered have been reviewed, and results considered in the medical decision making process. - Radiology CXR Radiology Interpretation Completed By: Radiologist Summary of Radiographic Findings: Impression: No acute pulmonary or cardiac process evident. ED physician has reviewed this report. - Ultrasound RUE DVT US Ultrasound Interpretation Completed By: Radiologist Summary of Ultrasound Findings: Impression: No evidence for RIGHT upper extremity deep venous thrombosis. ED physician has reviewed this report. RLE DVT US Ultrasound Interpretation Completed By: Radiologist Summary of Ultrasound Findings: Impression: No evidence for RIGHT lower extremity deep venous thrombosis. ED physician has reviewed this report. Re-Evaluation - Re-Evaluation First Eval Re-Evaluation Time: 14:25 Comment: Discussed results and plan for discharge Complex Multi-Symp Course/Dx Course Of Treatment: 39 y/o male w hx testicular cancer (s/p chemo), PE on xarelto p/w arm and leg swelling. - PE w nonpitting edema right upper extremity , trace edema of the right lower extremity. 2+ DP and radial pulses. - no fevers, no significant erythema or e/o cellulitis. - D/w oncology, ultrasound of the upper and lower extremity does not show any obvious DVT. Chest x-ray does not show any obvious masses that would be causing obstruction. Unclear cause of swelling, patient to follow-up with oncology - Diagnoses Provider Diagnoses: Swelling of right upper extremity, Swelling of right lower extremity - Physician Notifications Discussed Care Of Patient With: Jennie Portillo - oncology Time Discussed With Above Provider: 12:45 Instructed by Provider To: Other - I discussed the patients case with Dr. Portillo, who is on-call for oncology, and she recommends US. Following neg US results, Dr. Portillo recommends CXR prior to d/c [1355]. Discharge ED - Sign-Out/Discharge Documenting (check all that apply): Patient Departure - Patient will be discharged home. - Discharge Plan Condition: Stable Disposition: HOME Patient Education Materials: Leg Edema (ED) Referrals: Brian Grey MD [Primary Care Provider] - 3 Days Additional Instructions: You were seen in the emergency department for arm and leg swelling. Your ultrasound did not show any blood clots. Please follow up with oncology. If any studies were not completed at the time of discharge you will be called with the relevant results. Please follow up with your primary care doctor in the next 2-3 days and return to the emergency department for worsening swelling, chest pain, or concerning symptoms. It was a pleasure taking care of you today. - Billing Disposition and Condition Condition: STABLE Disposition: Home - Attestation Statements Document Initiated by Arabella: Yes Documenting Scribe: Elena Pisano Provider For Whom Arabella is Documenting (Include Credential): Dr. Linda Conte MD Scribe Attestation: Elena Wang, scribed for Dr. Linda Conte MD on 06/24/19 at 1544. Scribe Documentation Reviewed: Yes Provider Attestation: The documentation as recorded by the Elena morales accurately reflects the service I personally performed and the decisions made by me, Dr. Linda Conte MD Status of Scribe Document: Viewed
[2019-06-24 14:34] VITALS: BP 123/90
== END 2019-06-24 14:33 | disposition home or self-care (01) ==
LOC: ED 12:03
DX: R60.0 Localized edema (principal); I10 Essential (primary) hypertension; Z86.711 Personal history of pulmonary embolism; Z79.01 Long term (current) use of anticoagulants; Z85.47 Personal history of malignant neoplasm of testis; Z91.018 Allergy to other foods; Z87.891 Personal history of nicotine dependence
CPT/HCPCS: 71046; 99282

== ENCOUNTER 2019-07-09 09:10 | Emergency (ER) | payer OTHER ==
[2019-07-09 09:19] VITALS: BP 129/83
--- NOTE | 2019-07-09 10:11 | UC ---
Nausea/Vomiting/Diarrhea HPI - HPI Summary HPI Summary: 39-year-old male presenting with for complaint of vomiting times one this morning at 0730. States he dry heaved again at 0800, nothing since. Denies abdominal pain. Denies diarrhea. States last BM was last night and was normal. Denies new foods, ate pizza last night. States he "feels okay now, just a little off." Denies fever and chills. Denies URI symptoms. Denies body aches. Patient states that he is "not feeling well so he really just needs a work note to excuse him for the day." PMHx significant for testicular cancer 2018 and PE May 2019 for which he is taking xarelto. Not currently receiving treatment, last round of chemo was January 2019. - History of Current Complaint Chief Complaint: UCGeneralIllness Stated Complaint: VOMMITING Hx Obtained From: Patient, Family/Concrete Handler - Pain Intensity: 0 - Allergies/Home Medications Allergies/Adverse Reactions: Allergies Allergy/AdvReac Type Severity Reaction Status Date / Time raspberry Allergy Mild Hives Verified 05/07/19 10:42 PMH/Surg Hx/FS Hx/Imm Hx Cancer History: Other - testicular Other History Of: Anticoagulant Therapy - Xarelto - Surgical History Surgical History: Yes Surgery Procedure, Year, and Place: right testicle,PORT - Family History Known Family History: Positive: Hypertension, Diabetes, Other - Cancer, Denies FHx of GI problems Family History: pt was adopted but knows there is heart disease and dm in his biological family - Social History Alcohol Use: None Alcohol Amount: recovering alcoholic Substance Use Type: None Substance Use 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 Smoking Status (MU): Former Smoker Type: Cigarettes Amount Used/How Often: 1.5 ppd for 17 yrs Length of Time of Smoking/Using Tobacco: 17 YRS Have You Smoked in the Last Year: No When Did the Patient Quit Smoking/Using Tobacco: 2014 - Immunization History Most Recent Influenza Vaccination: 05/13/17 Most Recent Pneumonia Vaccination: NEVER Vaccination Up to Date: Yes Review of Systems All Other Systems Reviewed And Are Negative: Yes Constitutional: Positive: Negative. Negative: Fever, Chills, Fatigue ENT: Positive: Negative Respiratory: Positive: Negative. Negative: Shortness Of Breath, Cough Cardiovascular: Positive: Negative. Negative: Palpitations, Chest Pain Gastrointestinal: Positive: Vomiting - x1. Negative: Abdominal Pain, Diarrhea, Nausea Genitourinary: Positive: Negative Musculoskeletal: Positive: Negative Neurological: Positive: Negative Physical Exam - Summary Physical Exam Summary: Vital Signs Reviewed: Yes A+Ox3, no distress, well-appearing Eyes: Conjunctiva Clear ENT: Hearing grossly normal, TM x 2 clear, moist, uvula midline, no exudate, no erythema Neck: Positive: Supple Respiratory: Positive: No respiratory distress, No accessory muscle use + CTA throughout no w/r Cardiovascular: RRR nl s1, s2 no m/r Abd: soft + BS nt/dt no guarding Musculoskeletal Exam: HILL[place] x 4 without difficulty, + edema of R arm/hand, ROM intact, strength intact, cap refill <2sec, sensation grossly intact, radial pulses 2+ Neurological: Positive: Alert Psychological: Positive: age appropriate behavior Skin: Positive: no rash, no ecchymosis Vital Signs: Initial Vital Signs Temp 98 F 07/09/19 09:17 Pulse 83 07/09/19 09:17 Resp 16 07/09/19 09:17 BP 129/83 07/09/19 09:17 Pulse Ox 100 07/09/19 09:17 Naus/Vom/Diarrhea Course/Dx - Course Course Of Treatment: Negative rapid flu. Patient in no pain distress. Vital signs normal. Patient denies any symptoms currently. When questioned about swelling of right upper extremity, patient states "that has been happening for over a month and no one knows what is causing it." CT followed up with his primary once but did not get any answers. I instructed patient to continue symptomatic treatment including use of antinausea medication he has at home for any nausea or vomiting he experiences. Instructed to go to ED with any new or worsening symptoms. I informed the patient that he should follow up with his primary care provider (has appt on 07/12/2019) or his oncologist to further discuss swelling in right arm. Patient voiced understanding and agreed with treatment plan. - Differential Dx/Diagnosis Provider Diagnosis: Acute vomiting, Swelling of right upper extremity Condition At Discharge: Stable Discharge ED - Sign-Out/Discharge Documenting (check all that apply): Patient Departure All imaging exams completed and their final reports reviewed: No Studies - Discharge Plan Condition: Stable Disposition: HOME Patient Education Materials: Acute Nausea and Vomiting (ED), Edema (ED) Forms: *Work Release Referrals: Brian Grey MD [Primary Care Provider] - Additional Instructions: Your flu test was negative today. You may take your anti nausea medication as directed. Get plenty of rest and fluids. Eat a bland diet, such as bread, bananas, and rice while symptoms are present. Go to the emergency room if your symptoms do not resolve or you develop fever, excessive vomiting, or are unable to keep fluids down. Be sure to follow up with your primary care provider on 07/12/2019 to further discuss the swelling of your arm. - Billing Disposition and Condition Condition: STABLE Disposition: Home
[2019-07-09 10:54] LABS: Influenza A Molecular Negative (Negative); Influenza B Molecular Negative (Negative)
== END 2019-07-09 11:19 | disposition home or self-care (01) ==
LOC: UCEAST 09:10
DX: R11.10 Vomiting, unspecified (principal); M79.89 Other specified soft tissue disorders; Z91.018 Allergy to other foods; Z87.891 Personal history of nicotine dependence
CPT/HCPCS: 99211; G0463